=== PATIENT | male | born 2000 | race African-American/Black ===

== ENCOUNTER 2024-02-12 15:14 | Emergency (ER) | payer BC ==
--- OUTSIDE RECORDS SUMMARY | 2024-02-12 15:18 | XMS REPORT | Continuity of Care Document ---
Author Name Unknown Address [address] [facility] [address] [place] [address] [facility] thconnect Address [address] [facility] [address] [place] [address] Care Team Providers Care Residential Collections Name Role Phone NO, PCP Primary Care Physician Unavailab Daron Irizarry Attending Clinician Unavailable Eduard Aguiar Attending Clinician Unavailable JASPREET ARNDT Attending Clinician Unavailable BEVERLY CACERES Attending Clinician Unavailable HARJEET VELA - Attending Clinician Unavailab le Physician, No Primary or Family Admitting Clinic apple Unavailable JASPREET ARNDT Admitting Clinician Unavailable BEEVRLY CACERES Admitting Clinician Unavailable HARJEET VEAL - Admitting Clinician Unavailab james Payers Payer Name Policy Type Policy Number Effective Date Expirati on Date Source 2 C [id number] Allergies, Adverse Reactions, Alerts Allergy Name Allergy Type Status Severity Reaction(s) Onset Date Inactive Date Treating Clinician Comments Source No Known Allergie s DA Active U 06-25 00:00: 00 [facility] No known drug Allergie s Miscella neous Allergy Active U Not Specified 2020-06 15:30: 25 [facility] No known drug Allergie s Miscella neous Allergy Active U Not Specified 2020-06 15:30: 25 [facility] ([facility]) No known drug Allergie s Miscella neous Allergy Active U Not Specified 2020-06 15:30: 25 [facility] ([facility]) No known drug Allergie s Miscella neous Allergy Active U Not Specified 2020-06 15:30: 25 [facility] ([facility]) No known drug Allergie s Miscella neous Allergy Active U Not Specified 2020-06 15:30: 25 [facility] ([facility]) No known drug Allergie s Miscella neous Allergy Active U Not Specified 2020-06 15:30: 25 [facility] ([facility]) No known drug Allergie s Miscella neous Allergy Active U Not Specified 2020-06 15:30: 25 [facility] ([facility]) No known drug Allergie s Miscella neous Allergy Active U Not Specified 2020-06 15:30: 25 [facility] ([facility]) No known drug Allergie s Miscella neous Allergy Active U Not Specified 2020-06 15:30: 25 [facility] ([facility]) No Known Allergie s NA Active 2020-06 15:30: 19 [facility] ([facility]) No Known Allergie s NA Active 2020-06 15:22: 28 [facility] ([facility]) No Known Allergie s NA Active 2020-06 10:25: 33 [facility] ([facility]) No Known Allergie s NA Active 2020-06 16:48: 01 [facility] ([facility]) No Known Allergie s NA Active 2020-06 15:17: 04 [facility] ([facility]) No Known Allergie s NA Active 2020-06 15:07: 30 [facility] ([facility]) No Known Allergie s NA Active 10-26 12:40: 47 [facility] ([facility]) No Known Allergie s NA Active 09-30 08:53: 23 [facility] ([facility]) No Known Allergie s NA Active 09-23 10:56: 06 [facility] No Known Allergie s NA Active 09-22 01:11: 02 [facility] ([facility]) No Known Allergie s NA Active 09-21 21:45: 20 [facility] No Known Allergie s NA Active 09-21 21:13: 14 [facility] Encounters Start Date/Time End Date/Time Encounter Type Admission Type Attending [facility] Facility Care Department Encounter ID Source 2023-10-26 19:33:00 2023-10-26 20:19:00 [id number] 28 [facility] 2023-06-25 11:28:00 2023-06-25 12:39:00 Emergency EM [facility] [id number] 92 [facility] 2021-04-26 16:36:00 2021-04-26 19:23:00 [facility] [id number] 2021-04-26 10:36:00 2021-04-26 13:23:00 Outpatient Encounter 1 JASPREET ARNDT [facility] [id number] [facility] 2021-04-08 20:22:00 2021-04-08 22:15:00 Emergency Department [facility] [id number] 2021-04-08 15:22:00 2021-04-08 17:15:00 Outpatient Encounter JASPREET ARNDT [facility] [id number] [facility] ([facility]) 2021-04-01 20:07:00 2021-04-01 21:47:00 [facility] [id number] 2021-04-01 15:07:00 2021-04-01 16:47:00 Outpatient Encounter BEVERLY CACERES [facility] [id number] [facility] ([facility]) 2020-09-22 07:09:35 2020-09-22 07:09:35 Emergency HARJEET VELA [facility] [id number] [facility] ([facility]) Results Test Description Test Time Test Comments Results Result Co mments Source INFLUENZA [id number] 12:29:00* Test Item Value Reference Range Interpretation Comme nts FLU A (test code = FLU A) NEGATIVE NEGATIVE FLU B (test code = FLU B) NEGATIVE NEGATIVE FLU INTERNAL POSITIVE CNTRL (test code = FLU IPC) PASS PASS INFLUENZA LOT # (test code = FLULOT) [id number] INFLUENZA EXPIRATION DATE (t est code = FLUEXP) 09-23 Influenza virus A+B Ag [Presence] in Nose by [id number] 12:29:00* Test Item Value Reference Range Interpretation Comme nts FLU INTERNAL POSITIVE CNTRL (test code = FLU IPC) PASS PASS N INFLUENZA LOT # (test code = FLULOT) [id number] 1 N INFLUENZA EXPIRATION DATE (t est code = FLUEXP) 09-23 N [facility])COVID SYMPTOMATIC ER [id number] 12:05:00* Test Item Value Reference Range Interpretation Comme nts CORONAVIRUS (COVID-19)BY PCR (test code = EAZ07VHA) NEGATIVE SARS-CoV-2 (COVID-19) N gene [Presence] in [id number] 12:05:00Negative [facility])SARS-CoV-2 (COVID-19) N gene [Presence] in Resp 2021-04-26 12:05:[facility]TROPONIN [id number] 11:55:00* Test Item Value Reference Range Interpretation Comme nts TROPER (test code = TROPER) 0.00 NG/ML 0.0-0.08 INTERPRETIVE DATA A POC TROPONIN OF </= 0.08 NG/ML IS CONSIDERED NEGATIVE Troponin T.cardiac [Mass/volume] in [id number] 11:55:00* Test Item Value Reference Range Interpretation Comme nts Troponin T.cardiac [Mass/vol ume] in Blood (test code = 02763-2) 0.0 NG/ML 0.0-0.08 N [facility])Ribs - bilateral and Chest X-ray 2 views and PA 2021-04-26 11:50:00* Test Item Value Reference Range Interpretation Comme nts Ribs - bilateral and Chest X-ray 2 views and PA chest (test code = 23088-4) [address] [address] DIAGNOSTIC IMAGING REPORT Patient Name: VANESSA ROUSE Date of Service: 04-26-2021 Age: 20 Sex: M Order #: [id number] Room: [facility] : 2000 X-Ray Number: [id number] Hospital Number: [id number] Admitting Physician: JASPREET ARNDT Ordering Physician: JORGE RODRIGES - CHEST XR 2 VIEWS 04/26/2021 11:29 AM:History: Cough without fever . Chest wall pain.Comparison: 04/08/2021Technique: 2 view chestFindings: The cardiomediastinal silhouette is normal. The lungs are clear without infiltrate, effusion, or pneumothorax. The bones are intact.Impression: No acute cardiopulmonary process.Electronically Signed By: Chivo Ramirez M.D., 04/26/2021 11:47 AMLegally authenticated by MARIA ESTHER WALDRON 2021-04-26 11:47:35 [facility])CHEST XR 2 [id number] 11:50:00 [facility] Vaughn : 2000 Sex: M[address] [address]VTCIBRCETA IMAGING REPORTPatient Name: VANESSA ROUSEDate of Service: [id number]: 20 Sex: M Order #: [id number] Room: ERSDOB: 2000 X-Ray Number: [id number] Record Number: [id number] Hospital Number: [id number] Physician: Dany ARNDTering Physician: JORGE RODRIGES -LEONOR XR 2 VIEWS 04/26/2021 11:29 AM:History: Cough without fever . Chest wall pain.Comparison: 04/08/2021Technique: 2 view chestFindings:The cardiomediastinal silhouette is normal. The lungs are clear withoutinfiltrate, effusion, or pneumothorax. The bones are intact.Impression:No acute cardiopulmonary process.Electronically Si gned By: Chivo Ramirez M.D., 04/26/2021 11:47 AMLegally authenticated by MARIA ESTHER WALDRON 2021-04-26 11:47:35Chest X-ray AP portable single [id number] 16:37:00* Test Item Value Reference Range Interpretation Comme [facility] Chest X-ray AP portable single view (test code = 52398-8) [address] [address] DIAGNOSTIC IMAGING REPORT Patient Name: VANESSA ROUSE Date of Service: 04-08-2021 Age: 20 Sex: M Order #: [id number] Room: ERS : 2000 X-Ray Number: [id number] Hospital Number: [id number] Admitting Physician: JASPREET ARNDT Ordering Physician: PHILLY BANDA - LEONOR 1 VIEW PORTABLE 04/08/2021 4:26 PM:History: SOB/SOA . Shortness of breath with chest painComparison: 04/01/2021Technique: 1 view chestFindings: The cardiomediastinal silhouette is normal. The lungs are clear without infiltrate, effusion, or pneumothorax. The bones are intact.Impression: No acute cardiopulmonary process. Electronically Signed By: Chivo Ramirez M.D., 04/08/2021 4:34 PMLegally authenticated by MARIA ESTHER WALDRON 2021-04-08 16:34:39 [facility]CHEST 1 VIEW [id number] 16:37:00 [facility] Roderick : 2000 Sex: M[address] [address]CJTSTNORML IMAGING REPORTPatient Name: VANESSA ROUSEDate of Service: [id number]: 20 Sex: M Order #: [id number] [facility] 2000 [facility] Number: [id number] Record Number: [id number] Hospital Number: [id number] Physician: Ashley ARNDT Physician: PHILLY BANDA -CHEST 1 VIEW PORTABLE 04/08/2021 4:26 PM:History: SOB/SOA . Shortness of breath with chest painComparison: 04/01/2021Technique: 1 view chestFindings:The cardiomediastinal silhouette is normal. The lungs are clear withoutinfiltrate, effusion, or pneumothorax. The bones are intact.Impression:No acute cardiopulmonary process.Electronically Signed By: Chivo Ramirez M.D., 04/08/2021 4:34 PMLegally authenticated by MARIA ESTHER WALDRON 2021-04-08 16:34:39INFLUENZA [id number] 16:10:00* Test Item Value Reference Range Interpretation Comme nts FLU A (test code = FLU A) NEGATIVE NEGATIVE FLU B (test code = FLU B) NEGATIVE NEGATIVE FLU INTERNAL POSITIVE CNTRL (test code = FLU IPC) PASS PASS INFLUENZA LOT # (test code = FLULOT) [id number] INFLUENZA EXPIRATION DATE (t est code = FLUEXP) [id number] Influenza virus A+B Ag [Presence] in Nose by [id number] 16:10:00* Test Item Value Reference Range Interpretation Comme nts FLU INTERNAL POSITIVE CNTRL (test code = FLU IPC) PASS PASS N INFLUENZA LOT # (test code = FLULOT) [id number] 1 N INFLUENZA EXPIRATION DATE (t est code = FLUEXP) [id number] 1 N [facility])Chest X-ray AP portable single [id number] 15:38:00* Test Item Value Reference Range Interpretation Comme nts Chest X-ray AP portable single view (test code = 60494-2) [address] [address] DIAGNOSTIC IMAGING REPORT Patient Name: VANESSA ROUSE Date of Service: 04-01-2021 Age: 20 Sex: M Order #: 100 Room: [facility] : 2000 X-Ray Number: [id number] Hospital Number: [id number] Admitting Physician: BEVERLY CACERES Ordering Physician: ADORE PIEDRA.04/01/2021 3:31 PMHistory: Cough and congestion.Technique: Single AP chest projection.Findings: Single chest projection demonstrates normal heart size and clear lungs. The osseous structures appear intact.Impression:No acute-appearing cardiopulmonary abnormalities.Electronical ly Signed By: Davide Padron M.D., 04/01/2021 3:36 PMLegally authenticated by CHAPARRO Lopez 2021-04-01 15:36:11 [facility])CHEST 1 VIEW [id number] 15:38:00 [facility] : 2000 [facility] [place], [place] [address]PAMRCTXJMG IMAGING REPORTPatient Name: VANESSA ROUSEDate of Service: [id number]: 20 Sex: M Order #: 100 Room: ERSDOB: 2000 X-Ray Number: [id number] Record Number: [id number] Hospital Number: [id number] Physician: BEVERLY CACERESOrdering Physician: ADORE PIEDRA.04/01/2021 3:31 PMHistory: Cough and congestion.Technique: Single AP chest projection.Findings: Single chest projection demonstrates normal heart size and clearlungs. The osseous structures appear intact.Impression:No acute-appearing cardiopulmonary abnormalities.Electronically Signed By: Davide Padron M.D., 04/01/2021 3:36 PMLegally authenticated by CHAPARRO Lopez 2021-04-01 15:36:11COVID SYMPTOMATIC ER [id number] 15:30:00* Test Item Value Reference Range Interpretation Comme nts CORONAVIRUS (COVID-19)BY PCR (test code = LNH66OAL) NEGATIVE SARS-CoV-2 (COVID-19) N gene [Presence] in [id number] 15:30:00Negative [facility])SARS-CoV-2 (COVID-19) N gene [Presence] in Resp 2021-04-01 15:30:00[facility])BLOOD [id number] 10:03:00* Test Item Value Reference Range Interpretation Comme nts Report Text (test code = Report Text) [facility] 2020-09-22 453 Report Text7 (test code = Report Text7) BLOOD CULTURES HELD FOR 5 DAYS BEFORE FINAL Report Text8 (test code = Report Text8) Report Text9 (test code = Report Text9) [employer] SUGGESTS THAT Report Text10 (test code = Report Text10) MOST CASES OF BACTEREMIA ARE DETECTED BY USING Report Text11 (test code = Report Text11) THREE SETS OF SEPARATELY COLLECTED BLOOD CULTURES. Report Text12 (test code = Report Text12) [facility] 2020-09-22 454 Report Text13 (test code = Report Text13) CONVERSELY, A SINGLE BLOOD CULTURE MAY MISS Report Text14 (test code = Report Text14) INTERMITTENTLY OCCURRING BACTEREMIA AND MAKE Report Text15 (test code = Report Text15) IT DIFFICULT TO INTERPRET THE CLINICAL Report Text16 (test code = Report Text16) SIGNIFICANCE OF CERTAIN ISOLATED ORGANISMS. Report Text17 (test code = Report Text17) Report Text18 (test code = Report Text18) [facility] 2020-09-22 455 Report Text19 (test code = Report Text19) COLLECTION SITE UNSPECIFIED Report Text20 (test code = Report Text20) [facility] 2020-09-22 1414 Report Text21 (test code = Report Text21) NO GROWTH WITHIN 1 DAY Report Text22 (test code = Report Text22) PRELIMINARY REPORT Report Text23 (test code = Report Text23) Report Text24 (test code = Report Text24) [facility] 2020-09-23 647 Report Text25 (test code = Report Text25) NO GROWTH WITHIN 2 DAYS Report Text26 (test code = Report Text26) PRELIMINARY REPORT Report Text27 (test code = Report Text27) Report Text28 (test code = Report Text28) [facility] 2020-09-26 1003 Report Text29 (test code = Report Text29) NO GROWTH WITHIN 5 DAYS Report Text30 (test code = Report Text30) FINAL REPORT NEG STREP SCRN CONFIRM [id number] 08:11:00* Test Item Value Reference Range Interpretation Comme nts Report Text (test code = Report Text) [facility] 2020-09-22 1138 Report Text7 (test code = Report Text7) NORMAL RESPIRATORY NIYA ISOLATED Report Text8 (test code = Report Text8) PRELIMINARY REPORT Report Text9 (test code = Report Text9) Report Text10 (test code = Report Text10) [facility] 2020-09-23 811 Report Text11 (test code = Report Text11) STREP SCREEN NEGATIVE, CULTURE NEGATIVE FOR Report Text12 (test code = Report Text12) GROUP A STREP - FINAL REPORT. CHEST XR 2 [id number] 07:09:00 [facility] Roderick : 2000 [facility]: [facility] [place] [id number] IMAGING REPORTPatient Name: VANESSA ROUSEDate of Service: [id number]: 19 Sex: M Order #: [id number] Room: ERSDOB: 2000 X-Ray Number: [id number] Record Number: [id number] Hospital Number: [id number] Physician: HARJEET VELA -Ordering Physician: ADELAIDE RODRIGES XR 2 VIEWS 09/21/2020 10:14 PMHistory: Cough with feverComparisons: None Available.CHEST:FINDINGS:Heart size is normal.There is no focal lung consolidation.There is no definite pleural effusion or pneumothorax identified.IMPRESSION:No acute cardiopulmonary process.EMERGENT INTERPRETATION PROVIDED BY [facility].Electronically Signed By: Juan Lara M.D., 09/22/2020 7:06 AMLegally authenticated by NOEL SHERMAN 2020-09-22 07:06:58INFLUENZA [id number] 00:08:00 * Test Item Value Reference Range Interpretation Comme nts FLU A (test code = FLU A) NEGATIVE NEGATIVE FLU B (test code = FLU B) NEGATIVE NEGATIVE FLU INTERNAL POSITIVE CNTRL (test code = FLU IPC) PASS PASS INFLUENZA LOT # (test code = FLULOT) [id number] INFLUENZA EXPIRATION DATE (t est code = FLUEXP) 10-18-2022 COVID SYMPTOMATIC ER [id number] 00:00:00* Test Item Value Reference Range Interpretation Comme nts CORONAVIRUS (COVID-19)BY PCR (test code = FVR06JVE) POSITIVE BMP, BASIC METABOLIC [id number] 23:37:00* Test Item Value Reference Range Interpretation Comme nts SODIUM (test code = NA) 136 MMOL/L 137-145 L K+ (test code = KSERUM) 3.8 MMOL/L 3.5-5.1 CHLORIDE (test code = CL) 98 MMOL/L 98-107 CO2 (test code = CO2) 29 MMOL/L 22-30 BUN (test code = BUN) 9 MG/DL 9-20 CREA (test code = CREA) 1.2 MG/DL 0.8-1.5 GLUCOSE (test code = GLUCOSE) 109 MG/DL 70-99 H Fasting glucos e normal <100 MG/DL- [employer] recommendation CALCIUM (test code = CABLOOD) 9.5 MG/DL 8.4-10.2 GFR (test code = GFR) 101 mL/min/1.73m2 A GFR of >90 mL/min/1.73m2 is considered normal. The GFR calculation on patients over 70 years of age is not validated by the police lieutenant patrol and may not represent the patients true renal function. GROUP A STREP [id number] 23:21:00* Test Item Value Reference Range Interpretation Comme nts GROUP A STREP SCREEN (test code = STREPGRA) NEGATIVE NEGATIVE Culture set up to confirm negative Strep Screen STREP A INTERNAL POS CNTRL (test code = STRPAIPC) PASS PASS STREP A LOT # (test code = STRPALOT) [id number] STREP A EXPIRATION DATE (test code = STRPAEXP) Culture set up to confirm negative Strep [id number] 23:14:00* Test Item Value Reference Range Interpretation Comme nts WBC (test code = WBC) 5.2 K/UL 3.5-10.9 RBC (test code = RBC) 5.51 M/UL 4.3-5.7 HGB (test code = HGB) 16.7 G/DL 13.0-17.9 HCT (test code = HCT) 48.4 % 38-52 MCV (test code = MCV) 87.8 FL 80-98 MCH (test code = MCH) 30.3 PG 28-32 MCHC (test code = MCHC) 34.5 G/DL 32.5-36.5 RDW (test code = RDW) 12.3 % 11.5-14.5 PLT (test code = PLT) 210 K/UL 150-450 MPV (test code = MPV) 11.0 FL 7.4-10.4 H MANDIFF (test code = MANDIFF) NO SCAN (test code = SCAN) NO NEUT% (test code = NEUT%) 72.2 % 40-75 LYMPH% (test code = LYMPH%) 12.9 % 24-44 L MONO% (test code = MONO%) 13.5 % 0-13 H EOS% (test code = EOS%) 0.2 % 0-4 BASO % (test code = BASO%) 1.0 % 0-2 IG (test code = IG) 0 % 0-1 IG% (test code = IG%) 0.2 % 0-1 IG% = Metamyeloc ytes, Myelocytes, and Promyelocytes. (Immature neutrophils not including "bands".) > 3% IG indicates risk of sepsis NRBC% (test code = NRBC%) 0 /100 WBC ABS NEUT (test code = NEUT) 3.8 K/UL 1.2-7.2 US EXTREMITY NON-VAS [id number] 15:32:[address] [address]GUCCTCHWOE IMAGING REPORTPatient Name: VANESSA ROUSE JDate of Service: [id number]: 18 Sex: M Order #: [id number] Room: OPEDOB: 2000 X-Ray Number: [id number] Record Number: [id number] Hospital Number: [id number] Physician: STEFANO POWELLOrdering Physician: STEFANO POWELL extremity nonvascular ultrasound.History: Complaining of pain in the right inguinal areaTechnique: Targeted ultrasound of the right inguinal areaComparison: No comparison availableFindings:Targeted ultrasound of the right inguinal area was performed. There is nodefinite evidence for a right inguinal hernia on this ultrasoundevaluation. Incidental is made of a lymph node in the right inguinal areameasuring approximately 1.8 x 0.5 cm.Impression:No definite evidence for a right inguinal hernia on this ultrasoundevaluation.Electronically Signed By: Alli Bobby M.D., 01/27/2019 3:30 PMLegally authenticated by EDUARDA LANDERS JR 2019-01-27 15:30:02 Notes Date/Time Note Provider Source 2023-10-26 19:54:00 [facility] ([facility]) EMERGENCY PROVIDER REPORT REPORT#:[id number] REPORT STATUS: Signed DATE:10/26/23 TIME: 1953 PATIENT: VANESSA ROUSE UNIT #: [id number] ROOM/BED: AGE: 22 SEX: M PCP PHYS: No Primary or Family Physician SERVICE AUTHOR: Radha Valiente LOCATION: [facility] * ALL edits or amendments must be made on the electronic/computer document * Radha Valiente 10/26/231953: HPI-Foot Prob/Inj Free Text HPI Notes Free Text HPI Notes This is a 22-year-old male patient with no significant past medical history present emergency room with right big toe swelling and pain for the past couple days. Patient states he has a ingrown toenail. Patient denies taking medications prior to arrival. Patient denies trauma. The patient denies any current SOB, abdominal pain, chest pain, dizziness, lightheadedness, nausea/ vomiting, diarrhea. Notice: Parts of this note were created using [employer] speech recognition dictation software. All things were made to correct any errors at the time of dictation, however there may be some errors present in the advertising sales representative that were inadvertently overlooked during the dictation. General Confirmed Patient Yes Patient Type New patient Initial Greet Date/Time 10/26/231934 Presentation Chief Complaint Toe pain R, Toe swelling R Hx Obtained From Patient Location: Right Foot Toe (Great toe) Quality Painful Associated with Denies: Cold extremity, Fever, Joint swelling, Neuro symptoms pre-arriv, Numbness, Painful extremity, Rash, Swollen extremity, Weak extremity, Weakness. Review of Systems ROS Statements All systems rev neg except as marked. Focused Review of Systems Skin Reports: Erythema, Swelling. Past Medical History - Adult Stated Complaint RT GREAT TOE PAIN/INGROWNTOENAIL Allergies Coded Allergies: No Known Allergies (06/25/23) Home Medications Active Scripts AMOXICILLIN (AMOXIL) 875 MG PO Q12HR 10 Days #20 TABS Prov: 06/25/23 Calculated Suicide Risk (nurs) No risk Review of Nursing Notes Triage notes reviewed Pt reports no significant: Past medical history, Past surgical history, Family history, Social history Smoking status for patients 13 years old or older: Never Smoker Physical Exam Vital Signs Vital Signs First Documented: Result Date Time Pulse Ox 96 10/25 1936 B/P 130/74 10/25 1936 B/P Mean 92 10/25 1936 O2 Delivery Room air 10/25 1936 Temp 37.3 10/25 1936 Pulse 73 10/25 1936 Resp 16 10/25 1936 Last Documented: Result Date Time Pulse Ox 98 10/25 2022 B/P 118/74 10/25 2022 B/P Mean 88 10/25 2022 O2 Delivery Room air 10/25 2022 Temp 37.2 10/25 2022 Pulse 67 10/25 2022 Resp 18 10/25 2022 Review of Vital Signs Reviewed Basic Physical Exam Basic PE GEN: Well appearing/NAD, HEAD: Atraumatic/NC, EYES: PERRL, conj clear, ENT: Membranes moist, NECK: Supple, RESP: No resp distress, CV: Reg rate rhythm, ABD: Soft/non-tender, UP EXT: No gross abnormal, SKIN: No rashes, warm/ dry, NEURO: alert oriented, NEURO: gross movement NL, PSYCH: NL thought content Focused PE General/Const General/Const Awake, Alert, No acute distress, Well appearing, Well developed , Well hydrated, Well nourished, Cooperative, Not toxic appearing MS Ankle/Foot Ankle/Foot Atraumatic, Inspection NL, Full range of motion, No erythema, Non- tender, No deformity, Neurologic intact, Vascular intact, No ligamentous injury, Tendon function NL, No compartment syndrome, No circumferential injury, No edema , Gait NL Right Great Toe Positive: Swelling present, Paronychia. Skin Skin Atraumatic, Color NL, No rash, Warm, Dry, Intact, Turgor NL, No swelling Neurologic Neurologic Oriented X3, Speech NL, No motor deficits, No sensory deficits, CN II - XII intact, Reflexes equal bilat, Cerebellar NL, Memory NL, Gait NL Re-Evaluation MDM Re-Evaluation/Progress Compartment Syndrome There are no signs or symptoms of compartment syndrome in the injured extremity at the time of this examination. Any pain the patient has is in proportion to the injury, the peripheral circulation is intact, capillary refill is not delayed, and there is no numbness, tingling or paresthesia. Tissue Perfusion Reassessment Patient tissue perfusion reassessment completed. ED Course Medication(s) Ordered Medication(s) Ordered: Central Nervous System Agents Sig/Katiuska Start time Last Medication Dose Route Stop Time Status Admin Ibuprofen 800 MG X1ED STA 10/25 2002 DC 10/25 PO 10/25 Skin And Mucous Membrane Agent Sig/Katiuska Start time Last Medication Dose Route Stop Time Status Admin Neomycin/Polymyxin/ 1 ENEDELIA X1ED STA 10/25 2002 DC 10/25 Bacitracin TOPICAL 10/25 Differential Diagnosis Differential Diagnosis Abrasion, Abscess, Arterial occlus/ischemia, Arthritis, gonococcal, Arthritis, gouty, Arthritis, pseudogout, Arthritis, rheumatoid, Arthritis, septic, Bite injury, Burn injury, Bursitis, Cellulitis, Compartment syndrome, Contusion, Deep vein thrombosis, Disloc dist interphal jt, Disloc metatar-phal jt, Disloc prox interphal jt, Dislocation subtalar, Dislocation total talar, Fx calcaneus, Fx cuboid, Fx cuneiform, Fx distal phalanx, Fx Hutson, Fx Lisfranc, Fx metatarsal base, Fx metatarsal head, Fx metatarsal neck, Fx middle phalanx, Fx navicular, Fx proximal phalanx, Fx sesamoid bone, Fx stress, Fx talus, Fx talus, dome, Hemarthrosis, Hematoma, Laceration, Neurovascular injury, Open fracture, Osteomyelitis, Peroneal tendon disloc, Plantar fasciitis, Puncture wound, Reflex symp dystrophy Free Text MDM Notes Free Text MDM Notes This patient presents with initial presentation of local erythema, warmth, swelling concerning for cellulitis. Sensitivity/pain to light touch around the erythematous area. No lymphangitic spread visible and no fluid pockets or fluctuance concerning for abscess noted. Low concern for osteomyelitis or DVT. No immune compromise, bullae, pain out of proportion, or rapid progression concerning for necrotizing fasciitis. Patient to be discharged home with keflex with follow up with their PMD. Patient's condition remained stable during emergency department evaluation. Patient was in no acute cardiorespiratory distress and no acute neurological changes noted. I discussed physical examination, diagnostic test results and treatment plan with patient including need for follow-up evaluation. I encouraged return to the nearest ED if symptoms change or worsens. Patient verbalizes understanding, states intention to ensure follow-up as advised and in agreement with the treatment plan. Patient Discharge Departure Vital Signs/Condition Vital Signs First Documented: Result Date Time Pulse Ox 96 10/25 1936 B/P 130/74 10/25 1936 B/P Mean 92 10/25 1936 O2 Delivery Room air 10/25 1936 Temp 37.3 10/25 1936 Pulse 73 10/25 1936 Resp 16 10/25 1936 Last Documented: Result Date Time Pulse Ox 98 10/25 2022 B/P 118/74 10/25 2022 B/P Mean 88 10/25 2022 O2 Delivery Room air 10/25 2022 Temp 37.2 10/25 2022 Pulse 67 10/25 2022 Resp 18 10/25 2022 All vital signs available at the time of this entry have been reviewed. Condition Stable Clinical Impression Clinical Impression Primary Impression: Toe pain, right Secondary Impressions: Cellulitis, Paronychia Disposition Decision Discharge )( Discharged to Home Yes )( Time 2013 )( Date 10/26/23 Discharge/Care Plan Counseled Regarding Diagnosis, Medication changes, Prescriptions, Need for follow-up, When to return to ED Rx Drug Database Reviewed Yes (Auto) Prescriptions Current Visit Scripts MUPIROCIN (BACTROBAN 2%) 1 APPLIC TOPICAL DAILY MUPIROCIN (BACTROBAN 2%) 1 APPLIC TOPICAL DAILY #22 GM CEPHALEXIN (KEFLEX) 500 MG PO Q12H CEPHALEXIN (KEFLEX) 500 MG PO Q12H #20 CAPS IBUPROFEN (MOTRIN) 800 MG PO TID PRN PRN PAIN IBUPROFEN (MOTRIN) 800 MG PO TID PRN PRN PAIN #30 TABS Prescriptions Reviewed Risks, Benefits, Alternative treatment Patient Instructions ED Paronychia of the Finger or Toe Departure Forms LOW COST OR FREE CLINICS [facility] PCP LIST Discharge Note I have spoken with the patient and/or caregivers. I have explained the patient's condition, diagnoses and treatment plan based on the information available to me at this time. I have answered the patient's and/or caregiver's questions and addressed any concerns. The patient and/or caregivers have as good an understanding of the patient's diagnosis, condition and treatment plan as can be expected at this point. The vital signs have been stable. The patient's condition is stable and appropriate for discharge from the emergency department. The patient will pursue further outpatient evaluation with the primary care physician or other designated or consulting physician as outlined in the discharge instructions. The patient and/or caregivers are agreeable to this plan of care and follow-up instructions have been explained in detail. The patient and/or caregivers have received these instructions in written format and have expressed an understanding of the discharge instructions. The patient and/or caregivers are aware that any significant change in condition or worsening of symptoms should prompt an immediate return to this or the closest emergency department or a call to 911. Extremity Inj Discharge Note The patient is discharged home with supportive care, a plan for pain control, and follow-up instructions that detail what to expect over the next 48 hours and what symptoms should prompt immediate return to the ED, including the symptoms of compartment syndrome. Follow-up instructions have been explained in detail to the patient, and the instructions have been provided in written format. The patient is comfortable with the plan of care and has expressed an understanding of the discharge instructions. The patient is aware that any significant change in condition or worsening of symptoms should prompt an immediate call to the primary or designated physician. If that is not successful the patient should call or return to this or the closest emergency department or call 911. Daron Partida 10/27/23 0144: Patient Discharge Departure Discharge/Care Plan Referrals Provider Referral: Kyung Welch DPM Follow-Up: Call for appointment Address: [address] [facility] [address] [place] [address] Provider Referral: Winsome Pike DPM Follow-Up: Call for appointment Address: [address] [facility] [address] [place] [id number] Provider Referral: Hiren Aguiar DPM Follow-Up: Call for appointment Address: [address] [facility] [address] [place] [id number] Supervising Physician Note Adalberto Saw Pt Alone I have reviewed the PA/THREAD MACHINE OPERATOR's note and plan of care. I was available for consultation as needed at all times during the patient's visit in the emergency department. I agree with the clinical impression, plan and disposition. at 2106 at 0144 RPT #:[id number] END OF REPORT [facility] 2023-10-26 19:38:00 [facility] ([facility]) EMERGENCY PROVIDER REPORT REPORT#:[id number] REPORT STATUS: Signed DATE:10/26/23 TIME: 1937 PATIENT: VANESSA ROUSE UNIT #: [id number] ROOM/BED: AGE: 22 SEX: M PCP PHYS: No Primary or Family Physician SERVICE DT: AUTHOR: Beto Muñiz LOCATION: [facility] * ALL edits or amendments must be made on the electronic/computer document * Provider in Triage - Adult Provider in Triage Initial Greet Date/Time 10/26/231934 Free Text PIT Notes Free Text PIT Notes I have greeted and performed a focused rapid initial assessment of this patient. A comprehensive ED assessment and evaluation of the patient, analysis of all test results, and completion of the medical decision-making process will be conducted by additional ED providers. Pt is a 22-year-old male to the ED with chief complaint of right great big toe pain for 3 days. General/Constitutional: Appears to be in no acute distress Neurologic: Alert, Oriented x3 Respiratory: Atraumatic, no acute respiratory distress, no stridor, symmetric expansion, unlabored breathing, airway patent, no drooling Initial labs, radiographs ordered upon initial assessment. The medical screening examination is complete. The patient does not need immediate medical attention. There are no acute symptoms of sufficient severity that the patient could reasonably be expected to develop serious impairment or dysfunction of body functions or organs. Parts of the note were created using [employer] speech recognition dictation software. All attempts were made to correct any errors at the time of dictation, however there may be some errors present in the advertising sales representative that were inadvertently overlooked during the dictation. PMH-Provider in Triage Stated Complaint RT GREAT TOE PAIN/INGROWN TOENAIL Allergies Coded Allergies: No Known Allergies (06/25/23) Home Medications Active Scripts AMOXICILLIN (AMOXIL) 875 MG PO Q12HR 10 Days #20 TABS Prov: 06/25/23 Smoking status: Smoking status for patients 13 years old or older: Never Smoker at 1938 RPT #:[id number] END OF REPORT [facility] 2023-06-25 12:35:00 [facility] ([facility]) EMERGENCY PROVIDER REPORT REPORT#:[id number] REPORT STATUS: Signed DATE:06/25/23 TIME: 1235 PATIENT: VANESSA ROUSE UNIT #: [id number] ROOM/BED: AGE: 22 SEX: M PCP PHYS: No Primary or Family Physician SERVICE AUTHOR: Nicolasa George LOCATION: [facility] * ALL edits or amendments must be made on the electronic/computer document * Nicolasa George 06/25/23 1235: HPI-URI/Cough/Cold Free Text HPI Notes Free Text HPI Notes Pt is a 22yo male with no Pmhx who presents to ED for cough, congestion, bodyaches, fever, and sore throat x 4 days. Denies abd pain, SOB, vomiting. General Confirmed Patient Yes Initial Greet Date/Time 06/25/23 1128 Presentation Chief Complaint Cough, non-productive, Fever, Sore throat Hx Obtained From Patient Review of Systems ROS Statements All systems rev neg except as marked. Complete sys rev neg except as marked. Focused Review of Systems Constitutional Reports: Fever. Denies: Chills, Fatigue, Lethargy, Malaise, Recent wt loss, Weakness - generalized. Eyes Denies: Blurred R, Blurred L, Blurred bilat, Diplopia, Discharge R, Discharge L, Discharge bilat, Eye pain R, Eye pain L, Eye pain bilat, Photophobia, Redness R, Redness L, Redness bilat, Swelling R, Swelling L, Swelling bilat, Visual loss R, Visual loss L, Visual loss bilat, Yellow R, Yellow L, Yellow bilat. Ears/Nose/Throat Reports: Nasal congestion, Sore throat, Throat pain. Denies: Anosmia, Ear drainage R, Ear drainage L, Ear drainage bilat, Ear ringing R, Ear ringing L, Ear ringing bilat, Earache R, Earache L, Earache bilat, Hearing loss R, Hearing loss L, Hearing loss bilat, Mouth pain, Nose bleeding, Sinus problem, Throat swelling, Tongue pain, Tongue swelling, Toothache, Voice change. Respiratory Reports: Cough, non-productive. Denies: Cough, productive, Dyspnea on exertion, Hemoptysis, Parox nocturnal dyspnea, Pleuritic pain, Shortness of breath, Wheezing. GI Denies: Abdominal pain, Anorexia, Belching, Bloody/tarry stool, Constipation, Diarrhea, Dysphagia, Hematemesis, Hematochezia, Mucousy stool, Melena, Nausea, Rectal pain, Vomiting. Skin Denies: Abrasion, Abscess, Burn, Contusion, Diaphoresis, Erythema, Itching, Jaundice, Laceration, Rash, Swelling, Ulceration. Allergy/Immun Denies: Allergic reaction, Anaphylaxis, Hives, Itching, Rhinorrhea, Sneezing. Neurologic Denies: Abnormal movement, Bladder dysfunction, Bowel dysfunction, Change LOC, Confusion, Dizziness, Focal weakness, Generalized weakness, Headache, Lightheaded, Numbness, Problem walking, Seizure, Shaking, Slurred speech, Spinning sensation, Syncope, Tingling, Unable to speak, Vision change. Past Medical History - Adult Stated Complaint FEVER FLU LIKE SYMPTOMS FOR 4 DAYS Allergies Coded Allergies: No Known Allergies (06/25/23) Calculated Suicide Risk (nurs) No risk Pt reports no significant: Past medical history Smoking status for patients 13 years old or older: Never Smoker Physical Exam Vital Signs Vital Signs First Documented: Result Date Time Pulse Ox 95 06/25 1149 B/P 129/81 06/25 1149 B/P Mean 97 06/25 1149 O2 Delivery Room air 06/25 1149 Temp 100.2 06/25 1149 Pulse 97 06/25 1149 Resp 18 06/25 1149 Last Documented: Result Date Time Pulse Ox 97 06/25 1239 B/P 129/80 06/25 1239 B/P Mean 96 06/25 1239 O2 Delivery Room air 06/25 1239 Temp 98.0 06/25 1239 Pulse 82 06/25 1239 Resp 16 06/25 1239 Review of Vital Signs Reviewed, Vital signs normal Focused PE General/Const General/Const Awake, Alert, No acute distress, Well appearing, Well developed , Well hydrated, Well nourished, Cooperative, Not toxic appearing Eyes Eyes Atraumatic, PERRL, EOMI, No nystagmus, No periorbital redness, No periorbital swelling, No photophobia, No scleral icterus Ears/Nose/Throat Ears/Nose/Throat Atraumatic, Airway patent, Mucous membranes moist, No peritonsillar abscess, No pooling of secretions, No trismus, Ext aud canal NL, Mastoid area NL, Nose exam NL, No sinus tenderness, No facial swelling, Gums/ dentition NL Pharynx/Tonsils/Uvula Pharyngeal erythema, Tonsillar erythema R, Tonsillar erythema L, Tonsillar swelling R, Tonsillar swelling L. Negative: Tonsillar exudate R, Tonsillar exudate L, Peritonsil abscess R, Peritonsil abscess L, Trismus present, Epiglottis enlarged, Epiglottis erythematous, Uvula deviated R, Uvula deviated L , Uvula edematous, Uvula enlarged, Uvula erythematous. Right Ear/Mastoid Negative: Tympanic membrane red, Tympanic membrane bulging, Tympanic memb perforated, Tympanic memb retracted, Bullous myringitis, Fluid behind TM clear, Fluid behind TM purulent, External canal red, External picker tender helper, Ext canal foreign body, Discharge purulent, Discharge bloody, Ext canal cerumen impact, Mastoid area red, Mastoid area tender, [place] red, [place] tender. Left Ear/Mastoid Tympanic membrane red. Negative: Tympanic membrane bulging, Tympanic memb perforated, Tympanic memb retracted, Bullous myringitis, Fluid behind TM clear, Fluid behind TM purulent, External canal red, External picker tender helper, Ext canal foreign body, Discharge purulent, Discharge bloody, Ext canal cerumen impact, Mastoid area red, Mastoid area tender, [place] red, [place] tender. MS Neck Neck Atraumatic, Supple, No meningismus, Full range of motion, No swelling, Non-tender, No midline vertebral tend, No masses, No crepitus, No JVD, No carotid bruit, Thyroid NL, No tracheal deviation Soft Tissue Neck Cervical adenopathy R, Cervical adenopathy L. Resp/Chest Respiratory/Chest Atraumatic, Breath sounds NL, Breath sounds = bilat, No respiratory distress, No rales, No rhonchi, No wheezing, No retractions, No stridor, No chest tenderness, No chest wall deformity, No crepitus Cardiovascular Cardiovascular Heart rate NL, Regular rhythm, Heart sounds NL, No gallop, No murmurs, No rubs, Cap refill not delayed, Peripheral circulation NL, Pulses = bilaterally, No gross BP differential Abdomen/GI Abdomen/GI Atraumatic, Soft, Non-tender, McBurney's non-tender, No guarding, No rebound, BS normoactive, No distention, No hernia, No palpable mass, No pulsatile mass Skin Skin Atraumatic, Color NL, No rash, Warm, Dry, Intact, Turgor NL, No swelling Neurologic Neurologic Oriented X3, Speech NL, No motor deficits, No sensory deficits, CN II - XII intact, Reflexes equal bilat, Cerebellar NL, Memory NL, Gait NL Interpretation Diagnostics Lab Results Interpretation Results Laboratory Tests: 06/25 1151 Serology SARS-CoV-2 Ag (Rapid) (Negative) NEGATIVE Microbiology: Date/Time Procedure - Status Source Growth 06/25 1152 Group A Streptococcus Screen (CATHERINE) - RES THROAT 06/25 1152 Streptococcus Culture - RES THROAT 06/25 1151 Influenza Virus Type B Antigen - COMP NASOPHARG 06/25 1151 Influenza Virus Type A Antigen - COMP NASOPHARG Lab Statement Laboratory studies reviewed and considered in the medical decision-making. Re-Evaluation MDM Free Text MDM Notes Free Text MDM Notes Patient appears nontoxic. Patient is in no acute distress. Given Tylenol for low-grade fever. Lungs clear to auscultation. Abdomen soft and nontender. Patient can tolerate p.o. patient tested negative for COVID, flu, strep. On exam patient has erythematous and edematous posterior pharynx and tonsils with anterior cervical lymphadenopathy with a left-sided otitis media. Based on exam findings and symptoms, patient suspected to have strep pharyngitis. Airway is patent. Patient is stable and appropriate for discharge. Discharged with Rx and educated on supportive care instructions. Re-Evaluation/Progress URI/Flu Adult MDM Note The patient is now resting comfortably, is alert and in no distress. The patient has a normal mental status and is neurologically intact. The patient appears well and is able to tolerate food or fluid by mouth, and there is no significant dehydration. There is no respiratory distress and no signs of systemic toxicity. The history, exam, diagnostic testing (if any) and current condition do not demonstrate an infectious process such as meningitis, severe pneumonia, retropharyngeal abscess, epiglottitis, sepsis or other serious bacterial infection requiring further testing, treatment, consultation, or admission at this time. The vital signs have been stable. The patient's condition is stable and appropriate for discharge. The patient will pursue further outpatient evaluation with the primary care physician or other designated or consulting physician as indicated in the discharge instructions. Tissue Perfusion Reassessment Patient tissue perfusion reassessment completed. ED Course Medication(s) Ordered Medication(s) Ordered: Central Nervous System Agents Sig/Katiuska Start time Last Medication Dose Route Stop Time Status Admin Acetaminophen 1,000 MG X1ED STA 06/25 1154 DC 06/25 PO 06/25 1155 1200 Patient Discharge Departure Vital Signs/Condition Vital Signs First Documented: Result Date Time Pulse Ox 95 06/25 1149 B/P 129/81 06/25 1149 B/P Mean 97 06/25 1149 O2 Delivery Room air 06/25 1149 Temp 100.2 06/25 1149 Pulse 97 06/25 1149 Resp 18 06/25 114 Last Documented: Result Date Time Pulse Ox 97 06/25 1239 B/P 129/80 06/25 1239 B/P Mean 96 06/25 1239 O2 Delivery Room air 06/25 1239 Temp 98.0 06/25 1239 Pulse 82 06/25 1239 Resp 16 06/25 1239 All vital signs available at the time of this entry have been reviewed. Condition Stable, Improved Clinical Impression Clinical Impression Primary Impression: Pharyngitis Secondary Impressions: Otitis media, left Disposition Decision Discharge )( Discharged to Home Yes )( Time 1235 )( Date 06/25/23 Discharge/Care Plan Counseled Regarding Diagnosis, Lab results, Prescriptions, When to return to ED (Auto) Prescriptions Current Visit Scripts AMOXICILLIN (AMOXIL) 875 MG PO Q12HR 10 Days #20 TABS Patient Instructions ED Otitis Media Adult Additional Instructions Drink plenty of water. Take Tylenol or Motrin as needed for fever. Complete entire course of antibiotic even if feeling better. If symptoms do not improve in the next week then follow-up with PCP or return to the ED. Discharge Note I have spoken with the patient and/or caregivers. I have explained the patient's condition, diagnoses and treatment plan based on the information available to me at this time. I have answered the patient's and/or caregiver's questions and addressed any concerns. The patient and/or caregivers have as good an understanding of the patient's diagnosis, condition and treatment plan as can be expected at this point. The vital signs have been stable. The patient's condition is stable and appropriate for discharge from the emergency department. The patient will pursue further outpatient evaluation with the primary care physician or other designated or consulting physician as outlined in the discharge instructions. The patient and/or caregivers are agreeable to this plan of care and follow-up instructions have been explained in detail. The patient and/or caregivers have received these instructions in written format and have expressed an understanding of the discharge instructions. The patient and/or caregivers are aware that any significant change in condition or worsening of symptoms should prompt an immediate return to this or the closest emergency department or a call to 911. Eduard Aguiar 06/25/23 1605: Patient Discharge Departure Supervising Physician Note MidLv Saw Pt Alone I have reviewed the PA/THREAD MACHINE OPERATOR's note and plan of care. I was available for consultation as needed at all times during the patient's visit in the emergency department. I agree with the clinical impression, plan and disposition. at 1400 at 1605 [facility] #:[id number] END OF REPORT [facility] PATIENT OPEN ORDERS Code System Description Frequency Occurrences Priority Start Date Ordering Physician EKGW MEDHOST EKG ONE TIME 0 Stat April 26, 2021 5:10:00 PM [facility] ANDREW Mak NP [facility]2021-11-24 13:24:12 PATIENT OPEN ORDERS Code System Description Frequency Occurrences Priority Start Date Ordering Physician EKGW MEDHOST EKG ONE TIME 0 Stat April 26, 2021 5:10:00 PM [facility] ANDREW Mak [facility]2021-11-24 11:47:35[place] [address] DIAGNOSTIC IMAGING REPORT Patient Name: VANESSA ROUSE Date of Service: 04-26-2021 Age: 20 Sex: M Order #: [id number] Room: [facility] : 2000 X-Ray Number: [id number] Hospital Number: [id number] Admitting Physician: JASPREET ARNDT Ordering Physician: JORGE RODRIGES CHEST XR 2 VIEWS 04/26/2021 11:29 AM: History: Cough without fever . Chest wall pain. Comparison: 04/08/2021 Technique: 2 view chest Findings: The cardiomediastinal silhouette is normal. The lungs are clear without infiltrate, effusion, or pneumothorax. The bones are intact. Impression: No acute cardiopulmonary process. Electronically Signed By: Chivo Ramirez M.D., 04/26/2021 11:47 AM Legally authenticated by MARIA ESTHER WALDRON 2021-04-26 11:47:35MOCHIVO DANIELS [id number] 16:34:39[place] [address] DIAGNOSTIC IMAGING REPORT Patient Name: VANESSA ROUSE Date of Service: 04-08-2021 Age: 20 Sex: M Order #: [id number] Room: [facility] : 2000 X-Ray Number: [id number] Hospital Number: [id number] Admitting Physician: JASPREET ARNDT Ordering Physician: PHILLY BANDA - CHEST 1 VIEW PORTABLE 04/08/2021 4:26 PM: History: SOB/SOA . Shortness of breath with chest pain Comparison: 04/01/2021 Technique: 1 view chest Findings: The cardiomediastinal silhouette is normal. The lungs are clear without infiltrate, effusion, or pneumothorax. The bones are intact. Impression: No acute cardiopulmonary process. Electronically Signed By: Chivo Ramirez M.D., 04/08/2021 4:34 PM Legally authenticated by MARIA ESTHER WALDRON 2021-04-08 16:34:39MOCHIVO DANIELS [id number] 15:36:11[place] [address] DIAGNOSTIC IMAGING REPORT Patient Name: VANESSA ROUSE Date of Service: 04-01-2021 Age: 20 Sex: M Order #: [id number] Room: [facility] : 2000 X-Ray Number: [id number] Hospital Number: [id number] Admitting Physician: BEVERLY CACERES Ordering Physician: ADORE PIEDRA - Chest.04/01/2021 3:31 PM History: Cough and congestion. Technique: Single AP chest projection. Findings: Single chest projection demonstrates normal heart size and clear lungs. The osseous structures appear intact. Impression: No acute-appearing cardiopulmonary abnormalities. Electronically Signed By: Davide Padron M.D., 04/01/2021 3:36 PM Legally authenticated by CHAPARRO Lopez 2021-04-01 15:36:11DAVIDE PADRON [id number] 07:06:58[place] [address] DIAGNOSTIC IMAGING REPORT Patient Name: VANESSA ROUSE Date of Service: 09-21-2020 Age: 19 Sex: M Order #: [id number] Room: [facility] : 2000 X-Ray Number: [id number] Hospital Number: [id number] Admitting Physician: HARJEET VELA - Ordering Physician: JORGE RODRIGES CHEST XR 2 VIEWS 09/21/2020 10:14 PM History: Cough with fever Comparisons: None Available. CHEST: FINDINGS: Heart size is normal. There is no focal lung consolidation. There is no definite pleural effusion or pneumothorax identified. IMPRESSION: No acute cardiopulmonary process. EMERGENT INTERPRETATION PROVIDED BY [facility]. Electronically Signed By: Juan Lara M.D., 09/22/2020 7:06 AM Legally authenticated by NOEL SHERMAN 2020-09-22 07:06:ABHINAV WARE
--- NOTE | 2024-02-12 17:28 | RAD REPORT ---
EXAM DESCRIPTION: RAD - Ankle Right 3 View - 02/12/2024 4:30 pm CLINICAL HISTORY: Right ankle pain FINDINGS: No fracture or dislocation is seen. No significant bone or joint abnormality noted
--- NOTE | 2024-02-12 17:31 | RAD REPORT ---
EXAM DESCRIPTION: RAD - Ankle Left 3 View -02/12/2024 4:30 pm CLINICAL HISTORY: Left ankle pain FINDINGS: No fracture or dislocation is seen. No bone or joint abnormality noted
--- NOTE | 2024-02-12 19:12 | ER ---
Nurse's Notes [facility] Name: Henri Correa Age: 23 yrs Sex: Male : 2000 Arrival Date: 02/12/2024 Time: 15:14 Bed 12 Private MD: Diagnosis: Unspecified symptoms and signs involving the musculoskeletal system Presentation: 02/11 15:50 Chief complaint: Patient states: bad pain in both Achilles tendons X 2 weeks. iw Coronavirus screen: At this time, the client does not indicate any symptoms associated with coronavirus-19. Ebola Screen: No symptoms or risks identified at this time. Initial Sepsis Screen: Does the patient meet any 2 criteria? No. Patient's initial sepsis screen is negative. Does the patient have a suspected source of infection? No. Patient's initial sepsis screen is negative. Risk Assessment: Do you want to hurt yourself or someone else? Patient reports no desire to harm self or others. Onset of symptoms was January 29, 2024. 15:50 Method Of Arrival: Ambulatory iw 15:50 Acuity: JESSICA 4 iw Historical: - Allergies: 15:51 No Known Allergies; iw - Home Meds: 15:51 None [Active]; iw - PMHx: 15:51 None; iw - PSHx: 15:51 None; iw - Immunization history:: Adult Immunizations. - Infectious Disease History:: Denies. - Social history:: Smoking status: Reported history of juuling and/or vaping. - Family history:: not pertinent. Screenin:34 [facility] ED Fall Risk Assessment (Adult) History of falling in the last 3 months, ap3 including since admission No falls in past 3 months (0 pts) Confusion or Disorientation No (0 pts) Intoxicated or Sedated No (0 pts) Impaired Gait No (0 pts) Mobility Assist Device Used No (0 pt) Altered Elimination No (0 pt) Score/Fall Risk Level 0 - 2 = Low Risk Oriented to surroundings, Maintained a safe environment, Educated pt \T\ family on fall prevention, incl call for assistance when getting out of bed, Assessed \T\ reinforced patient's understanding of fall precautions, Hourly rounding (assess needs \T\ fall precautionary measures) done, Used ambulatory aids as needed (educated on \T\ assisted with), Used gait belt as appropriate. Abuse screen: Denies threats or abuse. Nutritional screening: No deficits noted. Tuberculosis screening: No symptoms or risk factors identified. Assessment: 18:34 General: Appears in no apparent distress. Behavior is calm, cooperative, appropriate ap3 for age. Pain: Complains of pain in right \T\ left Achilles Pain currently is 7 out of 10 on a pain scale. Pain began gradually. Neuro: Level of Consciousness is awake, alert, obeys commands, Oriented to person, place, time, situation, Appropriate for age Gait is steady, Speech is normal. Cardiovascular: Patient's skin is warm and dry. Respiratory: Airway is patent Respiratory effort is even, unlabored, Respiratory pattern is regular, symmetrical. 19:15 General: Appears in no apparent distress. uncomfortable, well groomed, well developed, me1 well nourished, Behavior is calm, cooperative, appropriate for age, Reports bilateral achilles pain x 2 weeks. Pain: Complains of pain in right leg and right foot and right Achilles Pain does not radiate. Pain currently is 4 out of 10 on a pain scale. Quality of pain is described as sharp, Pain began 2 wks ago Is continuous. Neuro: Level of Consciousness is awake, alert, obeys commands, Oriented to person, place, time, situation, Appropriate for age. Cardiovascular: Patient's skin is warm and dry. Respiratory: Airway is patent Respiratory effort is even, unlabored, Respiratory pattern is regular, symmetrical. GI: No signs and/or symptoms were reported involving the gastrointestinal system. : No signs and/or symptoms were reported regarding the genitourinary system. EENT: No signs and/or symptoms were reported regarding the EENT system. Derm: Skin is intact, is healthy with good turgor, Skin is pink, warm \T\ dry. Musculoskeletal: Reports pain in left leg and right leg and right foot and right Achilles. Vital Signs: 15:50 BP 134 / 84; Pulse 62; Resp 16; Temp 97.1; Pulse Ox 100% on R/A; Weight 68.04 kg; iw Height 5 ft. 5 in. ; Pain 7/10; 19:30 BP 128 / 79; Pulse 64; Resp 16; Temp 98.2; Pulse Ox 100% ; me1 15:50 Body Mass Index 24.96 (68.04 kg, 165.1 cm) iw 15:50 Pain Scale: Adult iw ED Course: 15:23 Patient arrived in ED. sj2 15:36 Golden Mike MD is Attending Physician. [facility] 15:51 Triage completed. iw 15:51 Arm band placed on. iw 16:31 Ankle Right 3 View XRAY In Process Unspecified. EDMS 16:31 Ankle Left 3 View XRAY In Process Unspecified. EDMS 18:05 Patient placed in an exam room, on a stretcher. ll1 18:36 Patient has correct armband on for positive identification. Bed in low position. Call ap3 light in reach. Side rails up X 1. Provided Education on: call light education. 19:11 Po Luna MD is Referral Physician. [facility] 19:15 No provider procedures requiring assistance completed. Patient did not have IV access me1 during this emergency room visit. 19:18 Melida Narvaez, RN is Primary Nurse. me1 Administered Medications: 19:24 Drug: Ibuprofen PO 600 mg PO once Route: PO; me1 19:27 Follow up: Response: No adverse reaction me1 Medication: 19:15 VIS not applicable for this client. me1 Outcome: 19:11 Discharge ordered by . [facility] 19:30 Discharged to home ambulatory, me1 19:30 Condition: stable 19:30 Discharge instructions given to patient, Instructed on discharge instructions, follow up and referral plans. Demonstrated understanding of instructions, follow-up care, 19:30 Patient left the ED. me1 Signatures: Dispatcher [employer] [facility] Golden Mike MD MD cha Williams, Irene, RN RN Linda Dover RN RN ap3 Jc Marmolejo RN RN [facility] Melida Narvaez, VLAD RN ri1 Myra Caballero 2
--- NOTE | 2024-02-12 19:12 | EDPHYS ---
Physician Documentation [facility] Name: Henri Correa Age: 23 yrs Sex: Male : 2000 Arrival Date: 02/12/2024 Time: 15:14 Bed 12 Private MD: FABIAN Physician Golden Mike HPI: 02/11 19:07 This 23 yrs old Black Male presents to ER via Ambulatory with complaints of Foot Pain, toma ACHILLES PAIN. 19:07 The patient presents with pain, that is acute. The complaints affect the right leg and toma left leg. Context: The problem was sustained at home, resulted from pushing heavy things. Onset: The symptoms/episode began/occurred 2 week(s) ago. Modifying factors: The symptoms are alleviated by elevation of extremity, the symptoms are aggravated by movement. Associated signs and symptoms: The patient has no apparent associated signs or symptoms. Severity of symptoms: At their worst the symptoms were mild, in the emergency department the symptoms are unchanged. The patient has not experienced similar symptoms in the past. Historical: - Allergies: 15:51 No Known Allergies; iw - Home Meds: 15:51 None [Active]; iw - PMHx: 15:51 None; iw - PSHx: 15:51 None; iw - Immunization history:: Adult Immunizations. - Infectious Disease History:: Denies. - Social history:: Smoking status: Reported history of juuling and/or vaping. - Family history:: not pertinent. ROS: 19:07 Constitutional: Negative for fever, chills, and weight loss, Eyes: Negative for injury, toma pain, redness, and discharge, ENT: Negative for injury, pain, and discharge, Neck: Negative for injury, pain, and swelling, Cardiovascular: Negative for chest pain, palpitations, and edema, Respiratory: Negative for shortness of breath, cough, wheezing, and pleuritic chest pain, Abdomen/GI: Negative for abdominal pain, nausea, vomiting, diarrhea, and constipation, Back: Negative for injury and pain, : Negative for injury, bleeding, discharge, and swelling, Skin: Negative for injury, rash, and discoloration, Neuro: Negative for headache, weakness, numbness, tingling, and seizure, Psych: Negative for depression, anxiety, suicide ideation, homicidal ideation, and hallucinations, Allergy/Immunology: Negative for hives, rash, and allergies, Endocrine: Negative for neck swelling, polydipsia, polyuria, polyphagia, and marked weight changes, Hematologic/Lymphatic: Negative for swollen nodes, abnormal bleeding, and unusual bruising, 19:07 MS/extremity: Positive for pain, of the right leg and left leg, Exam: 19:07 Constitutional: This is a well developed, well nourished patient who is awake, alert, toma and in no acute distress. Head/Face: Normocephalic, atraumatic. Eyes: Pupils equal round and reactive to light, extra-ocular motions intact. Lids and lashes normal. Conjunctiva and sclera are non-icteric and not injected. Cornea within normal limits. Periorbital areas with no swelling, redness, or edema. ENT: Nares patent. No nasal discharge, no septal abnormalities noted. Tympanic membranes are normal and external auditory canals are clear. Oropharynx with no redness, swelling, or masses, exudates, or evidence of obstruction, uvula midline. Mucous membranes moist. Neck: Trachea midline, no thyromegaly or masses palpated, and no cervical lymphadenopathy. Supple, full range of motion without nuchal rigidity, or vertebral point tenderness. No Meningismus. Chest/axilla: Normal chest wall appearance and motion. Nontender with no deformity. No lesions are appreciated. Cardiovascular: Regular rate and rhythm with a normal S1 and S2. No gallops, murmurs, or rubs. Normal PMI, no JVD. No pulse deficits. Respiratory: Lungs have equal breath sounds bilaterally, clear to auscultation and percussion. No rales, rhonchi or wheezes noted. No increased work of breathing, no retractions or nasal flaring. Abdomen/GI: Soft, non-tender, with normal bowel sounds. No distension or tympany. No guarding or rebound. No evidence of tenderness throughout. Back: No spinal tenderness. No costovertebral tenderness. Full range of motion. Male : Normal genitalia with no discharge or lesions. Skin: Warm, dry with normal turgor. Normal color with no rashes, no lesions, and no evidence of cellulitis. Neuro: Awake and alert, GCS 15, oriented to person, place, time, and situation. Cranial nerves II-XII grossly intact. Motor strength 5/5 in all extremities. Sensory grossly intact. Cerebellar exam normal. Normal gait. Psych: Awake, alert, with orientation to person, place and time. Behavior, mood, and affect are within normal limits. 19:07 Musculoskeletal/extremity: ROM: no acute changes, intact in all extremities, full active range of motion, full passive range of motion, Circulation is intact in all extremities. Sensation intact. Compartment Syndrome exam of affected extremity: is normal. Joints: All joints appear normal with full range of motion. Weight bearing: able to fully bear weight, DVT Exam: no swelling, no tenderness, negative Homans' sign noted on exam, no appreciated bluish discoloration, no erythema, no increased warmth, pain, Vital Signs: 15:50 BP 134 / 84; Pulse 62; Resp 16; Temp 97.1; Pulse Ox 100% on R/A; Weight 68.04 kg; iw Height 5 ft. 5 in. ; Pain 7/10; 19:30 BP 128 / 79; Pulse 64; Resp 16; Temp 98.2; Pulse Ox 100% ; me1 15:50 Body Mass Index 24.96 (68.04 kg, 165.1 cm) iw 15:50 Pain Scale: Adult iw MDM: 15:36 Patient medically screened. toma 19:09 Differential diagnosis: sprain, arthritis, gout. Data reviewed: vital signs, nurses toma notes, radiologic studies, plain films. Consideration of Admission/Observation Escalation of care including admission/observation considered. I considered the following discharge prescriptions or medication management in the emergency department Medications were administered in the Emergency Department. See MAR. Independent interpretation of the following test(s) in the Emergency Department X-Ray: My interpretation is bilateral ankles. Test considered but Not performed: Ultrasound no evidence od clot , no trama, no stasis, no hcs. 02/11 16:10 Order name: Ankle Right 3 View XRAY; Complete Time: 19:06 toma 02/11 16:10 Order name: Ankle Left 3 View XRAY; Complete Time: 19:06 [facility] Administered Medications: 19:24 Drug: Ibuprofen PO 600 mg PO once Route: PO; me1 19:27 Follow up: Response: No adverse reaction me1 Disposition Summary: 02/12/24 19:11 Discharge Ordered Notes: Location: Home toma Problem: new toma Symptoms: have improved toma Condition: Stable toma Diagnosis - Unspecified symptoms and signs involving the musculoskeletal system toma Followup: toma - With: Private Physician - When: 2 - 3 days - Reason: Recheck today's complaints, Continuance of care, Re-evaluation by your physician Followup: toma - With: Po Luna MD - When: 2 - 3 days - Reason: Recheck today's complaints, Re-evaluation by your physician Discharge Instructions: - Discharge Summary Sheet toma - Musculoskeletal Pain toma Forms: - Medication Reconciliation Form toma - Antibiotic Education toma - Prescription Opioid Use toma - Patient Portal Instructions toma - Leadership Thank You Letter toma Prescriptions: - Ibuprofen 600 mg Oral tablet - take 1 tablet ORAL route every 6 hours As needed take with food; 20 tablet; toma Refills: 0, Product Selection Permitted Signatures: Dispatcher [employer] Golden Gao MD MD cha Williams, Irene RN RN Melida Narvaez RN RN me1
[2024-02-12] MEDS ORDERED: IBUPROFEN 200 MG TAB PO ONE (19:18)
[2024-02-12 19:43] VITALS: O2SAT 100
[2024-02-12 19:48] VITALS: BP 128/79; TEMP 98.2
== END 2024-02-12 19:30 | disposition home or self-care (01) ==
LOC: ER 15:14
DX: R29.91 Unspecified symptoms and signs involving the musculoskeletal system (principal)
CPT/HCPCS: 99283

== ENCOUNTER 2024-03-14 08:33 | Emergency (ER) | payer BC ==
--- OUTSIDE RECORDS SUMMARY | 2024-03-14 08:36 | XMS REPORT | Continuity of Care Document ---
Author Name Unknown Address [address] [facility] [address] [place] [address] [facility] thconnect Address [address] [facility] [address] [place] [address] Care Team Providers Care Layout Operator Name Role Phone NO, PCP Primary Care Physician Unavailab Daron Irizarry Attending Clinician Unavailable Eduard Aguiar Attending Clinician Unavailable JASPREET ARNDT Attending Clinician Unavailable BEVERLY CACERES Attending Clinician Unavailable HARJEET VELA - Attending Clinician Unavailab le Physician, No Primary or Family Admitting Clinic apple Unavailable JASPREET ARNDT Admitting Clinician Unavailable BEVERLY CACERES Admitting Clinician Unavailable HARJEET VELA - Admitting Clinician Unavailab james Payers Payer Name Policy Type Policy Number Effective Date Expirati on Date Source 2 C [id number] Allergies, Adverse Reactions, Alerts Allergy Name Allergy Type Status Severity Reaction(s) Onset Date Inactive Date Treating Clinician Comments Source No Known Allergie s DA Active U 06-25 00:00: 00 [facility] No known drug Allergie s Miscella neous Allergy Active U Not Specified 2020-06 15:30: 25 [facility] No known drug Allergie s Miscella neous Allergy Active U Not Specified 2020-06 15:30: 25 [facility] ([facility]) No known drug Allergie s Miscella neous Allergy Active U Not Specified 2020-06 15:30: 25 [facility] ([facility]) No known drug Allergie s Miscella neous Allergy Active U Not Specified 2020-06 15:30: 25 [facility] ([facility]) No known drug Allergie s Miscella neous Allergy Active U Not Specified 2020-06 15:30: 25 [facility] ([facility]) No known drug Allergie s Miscella neous Allergy Active U Not Specified 2020-06 15:30: 25 [facility] ([facility]) No known drug Allergie s Miscella neous Allergy Active U Not Specified 2020-06 15:30: 25 [facility] ([facility]) No known drug Allergie s Miscella neous Allergy Active U Not Specified 2020-06 15:30: 25 [facility] ([facility]) No known drug Allergie s Miscella neous Allergy Active U Not Specified 2020-06 15:30: 25 [facility] ([facility]) No Known Allergie s NA Active 2020-06 15:30: 19 [facility] ([facility]) No Known Allergie s NA Active 2020-06 15:22: 28 [facility] ([facility]) No Known Allergie s NA Active 2020-06 10:25: 33 [facility] ([facility]) No Known Allergie s NA Active 2020-06 16:48: 01 [facility] ([facility]) No Known Allergie s NA Active 2020-06 15:17: 04 [facility] ([facility]) No Known Allergie s NA Active 2020-06 15:07: 30 [facility] ([facility]) No Known Allergie s NA Active 10-26 12:40: 47 [facility] ([facility]) No Known Allergie s NA Active 09-30 08:53: 23 [facility] ([facility]) No Known Allergie s NA Active 09-23 10:56: 06 [facility] No Known Allergie s NA Active 09-22 01:11: 02 [facility] ([facility]) No Known Allergie s NA Active 09-21 21:45: 20 [facility] No Known Allergie s NA Active 09-21 21:13: 14 [facility] Encounters Start Date/Time End Date/Time Encounter Type Admission Type Attending [facility] Facility Care Department Encounter ID Source 2023-10-26 19:33:00 2023-10-26 20:19:00 Emergency EM [facility] Partida [facility] [id number] [facility] 2023-06-25 11:28:00 2023-06-25 12:39:00 Emergency EM Eduard Aguiar [facility] [id number] [facility] 2021-04-26 16:36:00 2021-04-26 19:23:00 [facility] Department [facility] [id number] 2021-04-26 10:36:00 2021-04-26 13:23:00 Outpatient Encounter 1 JASPREET ARNDT [facility] [id number] [facility] 2021-04-08 20:22:00 2021-04-08 22:15:00 Emergency Department [facility] [id number] 2021-04-08 15:22:00 2021-04-08 17:15:00 Outpatient Encounter JASPREET ARNDT [facility] [id number] [facility] ([facility]) 2021-04-01 20:07:00 2021-04-01 21:47:00 [facility] Department [facility] [id number] 2021-04-01 15:07:00 2021-04-01 16:47:00 Outpatient Encounter BEVERLY CACERES [facility] [id number] [facility] ([facility]) 2020-09-22 07:09:35 2020-09-22 07:09:35 Emergency HARJEET VELA [facility] [id number] [facility] ([facility]) Results Test Description Test Time Test Comments Results Result Co mments Source INFLUENZA [id number] 12:29:00* Test Item Value Reference Range Interpretation Comme nts FLU A (test code = FLU A) NEGATIVE NEGATIVE FLU B (test code = FLU B) NEGATIVE NEGATIVE FLU INTERNAL POSITIVE CNTRL (test code = FLU IPC) PASS PASS INFLUENZA LOT # (test code = FLULOT) [id number] INFLUENZA EXPIRATION DATE (t est code = FLUEXP) 09-23 Influenza virus A+B Ag [Presence] in Nose by [id number] 12:29:00* Test Item Value Reference Range Interpretation Comme nts FLU INTERNAL POSITIVE CNTRL (test code = FLU IPC) PASS PASS N INFLUENZA LOT # (test code = FLULOT) [id number] 1 N INFLUENZA EXPIRATION DATE (t est code = FLUEXP) 09-23 N [facility])COVID SYMPTOMATIC ER [id number] 12:05:00* Test Item Value Reference Range Interpretation Comme nts CORONAVIRUS (COVID-19)BY PCR (test code = SVF35IVW) NEGATIVE SARS-CoV-2 (COVID-19) N gene [Presence] in [id number] 12:05:00Negative [facility])SARS-CoV-2 (COVID-19) N gene [Presence] in Resp 2021-04-26 12:05:[facility]TROPONIN [id number] 11:55:00* Test Item Value Reference Range Interpretation Comme nts TROPER (test code = TROPER) 0.00 NG/ML 0.0-0.08 INTERPRETIVE DATA A POC TROPONIN OF </= 0.08 NG/ML IS CONSIDERED NEGATIVE Troponin T.cardiac [Mass/volume] in [id number] 11:55:00* Test Item Value Reference Range Interpretation Comme nts Troponin T.cardiac [Mass/vol ume] in Blood (test code = 82937-2) 0.0 NG/ML 0.0-0.08 N [facility])Ribs - bilateral and Chest X-ray 2 views and PA 2021-04-26 11:50:00* Test Item Value Reference Range Interpretation Comme nts Ribs - bilateral and Chest X-ray 2 views and PA chest (test code = 27156-5) [address] [address] DIAGNOSTIC IMAGING REPORT Patient Name: VANESSA ROUSE Date of Service: 04-26-2021 Age: 20 Sex: M Order #: 100 Room: [facility] : 2000 X-Ray Number: [id number] Hospital Number: [id number] Admitting Physician: JASPREET ARNDT Ordering Physician: JORGE [...] authenticated by MARIA ESTHER WALDRON 2021-04-26 11:47:35 [facility])CHEST XR 2 [id number] 11:50:00 [facility] Vaughn : 2000 Sex: M[address] [id number] IMAGING REPORTPatient Name: VANESSA ROUSEDate of Service: [id number]: 20 Sex: M Order #: 100 Room: ERSDOB: 2000 X-Ray Number: [id number] Record Number: [id number] Hospital Number: [id number] Physician: Dany ARNDTering Physician: JORGE RODRIGES -LEONOR XR 2 VIEWS 04/26/2021 11:29 AM:History: Cough without fever . Chest wall pain.Comparison: 04/08/2021Technique: 2 view chestFindings:The cardiomediastinal silhouette is normal. The lungs are clear withoutinfiltrate, effusion, or pneumothorax. The bones are intact.Impression:No acute cardiopulmonary process.Electronically Si gned By: Chivo Ramirez M.D., 04/26/2021 11:47 AMLegally authenticated by MARIA ESTHER WALDRON 2021-04-26 11:47:35Chest X-ray AP portable single [id number] 16:37:00* Test Item Value Reference Range Interpretation Comme [facility] Chest X-ray AP portable single view (test code = 88712-6) [address] [address] DIAGNOSTIC IMAGING REPORT Patient Name: VANESSA ROUSE Date of Service: 04-08-2021 Age: 20 Sex: M Order #: [id number] Room: ERS : 2000 X-Ray Number: [id number] Hospital Number: [id number] Admitting Physician: JASPREET ARNDT Ordering Physician: PHILLY [...] authenticated by MARIA ESTHER WALDRON 2021-04-08 16:34:39 [facility]CHEST 1 VIEW [id number] 16:37:00 [facility] Roderick : 2000 Sex: M[address] [id number] IMAGING REPORTPatient Name: VANESSA ROUSEDate of Service: [id number]: 20 Sex: M Order #: 200 [facility] 2000 [facility] Number: [id number] Record Number: [id number] Hospital Number: [id number] Physician: Ashley ARNDT Physician: PHILLY BANDA -CHEST 1 VIEW PORTABLE 04/08/2021 4:26 PM:History: SOB/SOA . Shortness of breath with chest painComparison: 04/01/2021Technique: 1 view chestFindings:The cardiomediastinal silhouette is normal. The lungs are clear withoutinfiltrate, effusion, or pneumothorax. The bones are intact.Impression:No acute cardiopulmonary process.Electronically Signed By: Chivo Ramirez M.D., 04/08/2021 4:34 PMLegally authenticated by MARIA ESTHER WALDRON 2021-04-08 16:34:39INFLUENZA [id number] 16:10:00* Test Item Value Reference Range Interpretation Comme nts FLU A (test code = FLU A) NEGATIVE NEGATIVE FLU B (test code = FLU B) NEGATIVE NEGATIVE FLU INTERNAL POSITIVE CNTRL (test code = FLU IPC) PASS PASS INFLUENZA LOT # (test code = FLULOT) [id number] INFLUENZA EXPIRATION DATE (t est code = FLUEXP) [id number] Influenza virus A+B Ag [Presence] in Nose by [id number] 16:10:00* Test Item Value Reference Range Interpretation Comme nts FLU INTERNAL POSITIVE CNTRL (test code = FLU IPC) PASS PASS N INFLUENZA LOT # (test code = FLULOT) [id number] 1 N INFLUENZA EXPIRATION DATE (t est code = FLUEXP) [id number] 1 N [facility])Chest X-ray AP portable single [id number] 15:38:00* Test Item Value Reference Range Interpretation Comme nts Chest X-ray AP portable single view (test code = 97856-5) [address] [address] DIAGNOSTIC IMAGING REPORT Patient Name: VANSESA ROUSE Date of Service: 04-01-2021 Age: 20 Sex: M Order #: 100 Room: [facility] : 2000 X-Ray Number: [id number] Hospital Number: [id number] Admitting Physician: BEVERLY CACERES Ordering Physician: ADORE PIEDRA.04/01/2021 3:31 PMHistory: Cough and congestion.Technique: Single AP chest projection.Findings: Single chest projection demonstrates normal heart size and clear lungs. The osseous structures appear intact.Impression:No acute-appearing cardiopulmonary abnormalities.Electronical ly Signed By: Davide Padron M.D., 04/01/2021 3:36 PMLegally authenticated by CHAPARRO Lopez 2021-04-01 15:36:11 [facility])CHEST 1 VIEW [id number] 15:38:00 [facility] : 2000 Sex: [facility] [place], [place] [address]YMJBTJPSTQ IMAGING REPORTPatient Name: VANESSA ROUSEDate of Service: [id number]: 20 Sex: M Order #: 100 Room: ERSDOB: 2000 X-Ray Number: [id number] Record Number: [id number] Hospital Number: [id number] Physician: BEVERLY CACERESOrdering Physician: ADORE PIEDRA.04/01/2021 3:31 PMHistory: Cough and congestion.Technique: Single AP chest projection.Findings: Single chest projection demonstrates normal heart size and clearlungs. The osseous structures appear intact.Impression:No acute-appearing cardiopulmonary abnormalities.Electronically Signed By: Davide Padron M.D., 04/01/2021 3:36 PMLegally authenticated by CHAPARRO Lopez 2021-04-01 15:36:11COVID SYMPTOMATIC ER [id number] 15:30:00* Test Item Value Reference Range Interpretation Comme nts CORONAVIRUS (COVID-19)BY PCR (test code = TBX03ZXU) NEGATIVE SARS-CoV-2 (COVID-19) N gene [Presence] in [id number] 15:30:00Negative [facility])SARS-CoV-2 (COVID-19) N gene [Presence] in Resp 2021-04-01 15:30:00[facility])BLOOD [id number] 10:03:00* Test Item Value Reference Range Interpretation Comme nts Report Text (test code = Report Text) [facility] 2020-09-22 453 Report Text7 (test code = Report Text7) BLOOD CULTURES HELD FOR 5 DAYS BEFORE FINAL Report Text8 (test code = Report Text8) Report Text9 (test code = Report Text9) [place] SUGGESTS THAT Report Text10 (test code = Report Text10) MOST CASES OF BACTEREMIA ARE DETECTED BY USING Report Text11 (test code = Report Text11) THREE SETS OF SEPARATELY COLLECTED BLOOD CULTURES. Report Text12 (test code = Report Text12) [facility] 2020-09-22 454 Report Text13 (test code = [...] Report Text18 (test code = Report Text18) [facility] 2020-09-22 455 Report Text19 (test code = Report Text19) COLLECTION SITE UNSPECIFIED Report Text20 (test code = Report Text20) [facility] 2020-09-22 1414 Report Text21 (test code = Report Text21) NO GROWTH WITHIN 1 DAY Report Text22 (test code = Report Text22) PRELIMINARY REPORT Report Text23 (test code = Report Text23) Report Text24 (test code = Report Text24) [facility] 2020-09-23 647 Report Text25 (test code = Report Text25) NO GROWTH WITHIN 2 DAYS Report Text26 (test code = Report Text26) PRELIMINARY REPORT Report Text27 (test code = Report Text27) Report Text28 (test code = Report Text28) [facility] 2020-09-26 1003 Report Text29 (test code = Report Text29) NO GROWTH WITHIN 5 DAYS Report Text30 (test code = Report Text30) FINAL REPORT NEG STREP SCRN CONFIRM [id number] 08:11:00* Test Item Value Reference Range Interpretation Comme nts Report Text (test code = Report Text) [facility] 2020-09-22 1138 Report Text7 (test code = Report Text7) NORMAL RESPIRATORY NIYA ISOLATED Report Text8 (test code = Report Text8) PRELIMINARY REPORT Report Text9 (test code = Report Text9) Report Text10 (test code = Report Text10) [facility] 2020-09-23 811 Report Text11 (test code = Report Text11) STREP SCREEN NEGATIVE, CULTURE NEGATIVE FOR Report Text12 (test code = Report Text12) GROUP A STREP - FINAL REPORT. CHEST XR 2 [id number] 07:09:00 [facility] Roderick : 2000 Sex: [facility] [place] [address]WUHYAILCSP IMAGING REPORTPatient Name: VANESSA ROUSEDate of Service: [id number]: 19 Sex: M Order #: 700 Room: ERSDOB: 2000 X-Ray Number: [id number] Record Number: [id number] Hospital Number: [id number] Physician: HARJEET VELA -Ordering Physician: ADELAIDE RODRIGES XR 2 VIEWS 09/21/2020 10:14 PMHistory: Cough with feverComparisons: None Available.CHEST:FINDINGS:Heart size is normal.There is no focal lung consolidation.There is no definite pleural effusion or pneumothorax identified.IMPRESSION:No acute cardiopulmonary process.EMERGENT INTERPRETATION PROVIDED BY [facility].Electronically Signed By: Juan Lara M.D., 09/22/2020 7:06 AMLegally authenticated by NOEL SHERMAN 2020-09-22 07:06:58INFLUENZA [id number] 00:08:00 * Test Item Value Reference Range Interpretation Comme nts FLU A (test code = FLU A) NEGATIVE NEGATIVE FLU B (test code = FLU B) NEGATIVE NEGATIVE FLU INTERNAL POSITIVE CNTRL (test code = FLU IPC) PASS PASS INFLUENZA LOT # (test code = FLULOT) [id number] INFLUENZA EXPIRATION DATE (t est code = FLUEXP) 10-18-2022 COVID SYMPTOMATIC ER [id number] 00:00:00* Test Item Value Reference Range Interpretation Comme nts CORONAVIRUS (COVID-19)BY PCR (test code = RXW98EGE) POSITIVE BMP, BASIC METABOLIC [id number] 23:37:00* Test Item Value Reference Range Interpretation [...] H Fasting glucos e normal <100 MG/DL- [place] [employer] recommendation CALCIUM (test code = CABLOOD) 9.5 MG/DL 8.4-10.2 GFR (test code = GFR) 101 mL/min/1.73m2 A GFR of >90 mL/min/1.73m2 is considered normal. The GFR calculation on patients over 70 years of age is not validated by the paper bags sewing machine operator and may not represent the patients true renal function. GROUP A STREP [id number] 23:21:00* Test Item Value Reference Range Interpretation Comme nts GROUP A STREP SCREEN (test code = STREPGRA) NEGATIVE NEGATIVE Culture set up to confirm negative Strep Screen STREP A INTERNAL POS CNTRL (test code = STRPAIPC) PASS PASS STREP A LOT # (test code = STRPALOT) [id number] STREP A EXPIRATION DATE (test code = STRPAEXP) Culture set up to confirm negative Strep [id number] 23:14:00* Test Item Value Reference Range Interpretation [...] NEUT) 3.8 K/UL 1.2-7.2 US EXTREMITY NON-VAS [id number] 15:32:[address] [address]XOHJHETQGO IMAGING REPORTPatient Name: VANESSA ROUSE JDate of Service: 44-16-3110Aer: 18 Sex: M Order #: 100 Room: OPEDOB: 2000 X-Ray Number: [id number] Record Number: [id number] Hospital Number: [id number] Physician: STEFANO POWELLOrdering Physician: STEFANO POWELL extremity [...] Notes Date/Time Note Provider Source 2023-10-26 19:54:00 [facility] ([facility]) EMERGENCY PROVIDER REPORT REPORT#:[id number] REPORT STATUS: Signed DATE:10/26/23 TIME: 1953 PATIENT: VANESSA ROUSE UNIT #: [id number] ROOM/BED: AGE: 22 SEX: M PCP PHYS: No Primary or Family Physician SERVICE AUTHOR: Radha Valiente LOCATION: [facility] * ALL edits or amendments must be [...] Parts of this note were created using [employer] speech recognition dictation software. All things were made to correct any errors at the time of dictation, however there may be some errors present in the secretary book keeper that were inadvertently overlooked during the dictation. [...] Departure Forms LOW COST OR [facility] PCP LIST Discharge Note I have spoken [...] Welch DPM Follow-Up: Call for appointment Address: [address] [facility] [address] [place] [address] Provider Referral: Winsome Pike DPM Follow-Up: Call for appointment Address: [address] [facility] [address] [place] [id number] Provider Referral: Hiren Aguiar DPM Follow-Up: Call for appointment Address: [address] [facility] [facility] [address] [place] [id number] Supervising Physician Note Adalberto Saw Pt Alone I have reviewed the PA/HAND BUTTON SPLITTER's note and plan of care. I was available for consultation as needed at all times during the patient's visit in the emergency department. I agree with the clinical impression, plan and disposition. at 2106 at 0144 RPT #:[id number] END OF REPORT [facility] 2023-10-26 19:38:00 [facility] ([facility]) EMERGENCY PROVIDER REPORT REPORT#:[id number] REPORT STATUS: Signed DATE:10/26/23 TIME: 1937 PATIENT: VANESSA ROUSE UNIT #: [id number] ROOM/BED: AGE: 22 SEX: M PCP PHYS: No Primary or Family Physician SERVICE DT: AUTHOR: Beto Muñiz LOCATION: [facility] * ALL edits or amendments must be [...] Parts of the note were created using [employer] speech recognition dictation software. All attempts were made to correct any errors at the time of dictation, however there may be some errors present in the secretary book keeper that were inadvertently overlooked during the dictation. PMH-Provider in Triage Stated Complaint RT GREAT TOE PAIN/INGROWN TOENAIL Allergies Coded Allergies: No Known Allergies (06/25/23) Home Medications Active Scripts AMOXICILLIN (AMOXIL) 875 MG PO Q12HR 10 Days #20 TABS Prov: 06/25/23 Smoking status: Smoking status for patients 13 years old or older: Never Smoker at 1938 RPT #:[id number] END OF REPORT [facility] 2023-06-25 12:35:00 [facility] ([facility]) EMERGENCY PROVIDER REPORT REPORT#:[id number] REPORT STATUS: Signed DATE:06/25/23 TIME: 1235 PATIENT: VANESSA ROUSE UNIT #: [id number] ROOM/BED: AGE: 22 SEX: M PCP PHYS: No Primary or Family Physician SERVICE AUTHOR: Nicolasa George LOCATION: [facility] * ALL edits or amendments must be [...] behind TM purulent, External canal red, External thaw shed heater tender, Ext canal foreign body, Discharge purulent, Discharge bloody, Ext canal cerumen impact, Mastoid area red, Mastoid area tender, [place] red, [place] tender. Left Ear/Mastoid Tympanic membrane red. Negative: Tympanic membrane bulging, Tympanic memb perforated, Tympanic memb retracted, Bullous myringitis, Fluid behind TM clear, Fluid behind TM purulent, External canal red, External thaw shed heater tender, Ext canal foreign body, Discharge purulent, Discharge bloody, Ext canal cerumen impact, Mastoid area red, Mastoid area tender, [place] red, [place] tender. MS Neck Neck Atraumatic, Supple, No [...] Saw Pt Alone I have reviewed the PA/HAND BUTTON SPLITTER's note and plan of care. I was available for consultation as needed at all times during the patient's visit in the emergency department. I agree with the clinical impression, plan and disposition. at 1400 at 1605 [facility] #:[id number] END OF REPORT HCAWU PATIENT OPEN ORDERS Code System Description Frequency Occurrences Priority Start Date Ordering Physician EKGW MEDHOST EKG ONE TIME 0 Stat April 26, 2021 5:10:00 PM [facility] ANDREW Mak NP [facility]2021-11-24 13:24:12 PATIENT OPEN ORDERS Code System Description Frequency Occurrences Priority Start Date Ordering Physician EKGW MEDHOST EKG ONE TIME 0 Stat April 26, 2021 5:10:00 PM [facility] ANDREW Mak [facility]2021-11-24 11:47:35[place] [address] DIAGNOSTIC IMAGING REPORT Patient Name: VANESSA ROUSE Date of Service: 04-26-2021 Age: 20 Sex: M Order #: 100 Room: [facility] : 2000 X-Ray Number: [id number] Hospital Number: [id number] Admitting Physician: JASPREET ARNDT Ordering Physician: JORGE [...] by MARIA ESTHER WALDRON 2021-04-26 11:47:35MOCHIVO DANIELS [id number] 16:34:39[place] [address] DIAGNOSTIC IMAGING REPORT Patient Name: VANESSA ROUSE Date of Service: 04-08-2021 Age: 20 Sex: M Order #: 200 Room: [facility] : 2000 X-Ray Number: [id number] Hospital Number: [id number] Admitting Physician: JASPREET ARNDT Ordering Physician: PHILLY [...] by MARIA ESTHER WALDRON 2021-04-08 16:34:39MOCHIVO DANIELS [id number] 15:36:11[place] [address] DIAGNOSTIC IMAGING REPORT Patient Name: VANESSA ROUSE Date of Service: 04-01-2021 Age: 20 Sex: M Order #: 100 Room: [facility] : 2000 X-Ray Number: [id number] Hospital Number: [id number] Admitting Physician: BEVERLY CACERES Ordering Physician: ADORE PIEDRA - Chest.04/01/2021 3:31 PM History: Cough and congestion. Technique: Single AP chest projection. Findings: Single chest projection demonstrates normal heart size and clear lungs. The osseous structures appear intact. Impression: No acute-appearing cardiopulmonary abnormalities. Electronically Signed By: Davide Padron M.D., 04/01/2021 3:36 PM Legally authenticated by CHAPARRO Lopez 2021-04-01 15:36:11DAVIDE PADRON [id number] 07:06:58[place] [address] DIAGNOSTIC IMAGING REPORT Patient Name: VANESSA ROUSE Date of Service: 09-21-2020 Age: 19 Sex: M Order #: [id number] Room: [facility] : 2000 X-Ray Number: [id number] Hospital Number: [id number] Admitting Physician: HARJEET VELA - Ordering Physician: [...]
[2024-03-14 09:18] LABS: Absolute Basophils 0.1 K/uL (0-0.5); Absolute Eosinophils 0.1 K/uL (0-0.5); Absolute Lymphocytes (CBC) 2.3 K/uL (0.7-4.9); Absolute Monocytes 0.8 K/uL (0.1-1.3); Absolute Neutrophil 4.7 K/uL (1.8-8.0); Basophils % 0.8 % (0-1.3); Eosinophils % 1.5 % (0-4.4); Hematocrit 39.2 % (39.6-49.0); Hemoglobin 13.7 g/dL (13.6-17.9); Lymphocytes % 28.7 % (15.3-44.8); MCH 30.6 pg (27.0-35.0); MCHC 34.8 g/dL (32.0-36.0); MPV 8.5 fL (7.6-11.3); Monocytes % 10.3 % (3.3-12.3); Neutrophils % 58.7 % (41.7-73.7); Platelets 218 thou/uL (152-406); RBC Red Blood Cell Count 4.46 M/uL (4.33-5.43); Red Cell Distribution Width 13.1 % (12.1-15.2)
[2024-03-14 09:21] LABS: Specific Gravity 1.023 (1.005-1.030); Sqamous Epithelial None Seen /HPF (None Seen); Urine Bacteria None Seen /HPF (<20); Urine Bilirubin NEGATIVE (Negative); Urine Blood Negative (Negative); Urine Clarity Clear (Clear); Urine Color Yellow (Yellow); Urine Culture Reflex Order NOT NEEDED; Urine Glucose NEGATIVE (Negative); Urine Ketones TRACE (Negative); Urine Micro Reflex YN NO BILL MICROSCOPIC; Urine Mucus Slight /HPF (None Seen); Urine Nitrite NEGATIVE (Negative); Urine Protein TRACE (Negative); Urine RBC <5 /HPF (None Seen); Urine Urobilinogen 1+ (Normal); Urine WBC <5 /HPF (<5)
[2024-03-14 09:26] LABS: Anion Gap 7.2 mEq/L (5.0-15.0); Potassium 3.2 mEq/L (3.5-5.1)
[2024-03-14] MEDS ORDERED: POTASSIUM CL SA 10 MEQ TAB PO ONE (09:31)
--- NOTE | 2024-03-14 10:01 | RAD REPORT ---
EXAMINATION: CT ABDOMEN AND PELVIS WITH CONTRAST CLINICAL INDICATION: induration R groin/pubis region TECHNIQUE: CT abdomen and pelvis was performed, after the administration of IV contrast, as per [facility] protocol. Axial, sagittal and coronal reconstructions were obtained. One or more of the following dose reduction techniques were used: Automated exposure control, adjustment of the mA and k V according to patient size, and iterative reconstruction. Unless otherwise specified, incidental findings do not require dedicated imaging follow-up. COMPARISON: No prior exam. FINDINGS: LOWER CHEST: The visualized lung bases are clear. LIVER: Normal in size and contour. No focal lesion. SPLEEN: Normal size. No focal lesion. PANCREAS: No mass, ductal dilation, or young-pancreatic fluid. ADRENALS: Normal; no mass. KIDNEYS: Normal size and contour. No hydronephrosis. GASTROINTESTINAL TRACT: No evidence of free air, significant intra-abdominal free fluid, bowel obstru ction or abscess. APPENDIX: Normal appendix. LYMPH NODES: Several enlarged right inguinal lymph nodes, largest measuring 2.9 cm in appearing infla med. MUSCULOSKELETAL: No acute or suspicious osseous abnormality. ADDITIONAL FINDINGS: None. IMPRESSION: Several enlarged right inguinal lymph nodes, largest measuring 2.9 cm appearing inflamed.
--- NOTE | 2024-03-14 10:06 | EDPHYS ---
Physician Documentation [facility] Name: Henri Correa Age: 23 yrs Sex: Male : 2000 Arrival Date: 03/14/2024 Time: 08:33 Bed 8 Private MD: ED Physician Tristen Ac HPI: 03/14 09:00 This 23 yrs old Black Male presents to ER via Ambulatory with complaints of Groin Pain. ec2 09:00 Patient arrives today for evaluation of right groin swelling. Reports has been noticing ec2 this for the past several weeks however worsening pain which were prompted evaluation today. Patient reports no fevers or chills, nausea or vomiting. Patient reports no penile discharge. Patient reports no urinary complaints. Patient reports no history of malignancy. Reports no change in size with positional movements.. Historical: - Allergies: 08:40 No Known Allergies; ll1 - Home Meds: 08:40 None [Active]; ll1 - PMHx: 08:40 None; ll1 - PSHx: 08:40 None; ll1 - Immunization history:: Adult Immunizations up to date. - Infectious Disease History:: Denies. - Social history:: Smoking status: Reported history of juuling and/or vaping. Patient denies any tobacco usage or history of. ROS: 09:00 Constitutional: as per hpi ec2 Exam: 09:00 Constitutional: GEN: NAD Head: atraumatic Eyes: EOMI Ears: External ears are ec2 normal. CV: regular rate LUNGS: no respiratory distress ABD: non-distended. : Right groin with firm tender induration, no fluctuance appreciated, no erythema, no warmth, no discharge, nonreducible SKIN: no evidence of rashes MSK: no evidence of trauma Vital Signs: 08:46 BP 144 / 88; Pulse 92; Resp 17; Temp 98.4; Pulse Ox 98% ; Weight 68.04 kg; Height 5 ft. ll1 5 in. ; Pain 7/10; 10:19 Pulse 75; Resp 16; Pulse Ox 100% on R/A; mb9 08:46 Body Mass Index 24.96 (68.04 kg, 165.1 cm) ll1 08:46 Pain Scale: Adult ll1 MDM: 09:00 Data reviewed: vital signs. ED course: Patient arrives today for evaluation of right ec2 groin pain. Examination remarkable for groin findings as above. Will obtain lab work, CT imaging. Differential includes lymphadenopathy, malignancy, initially considered hernia, kidney stone . 09:27 ED course: CBC reassuring, metabolic profile shows slight hypokalemia. Urine is ec2 noninfectious appearing. Pending CT imaging. . 10:05 ED course: CT imaging shows enlarged inguinal lymphadenopathy 2.9 cm in size. Will ec2 treat the patient's pain with medications, will have the patient follow-up with PCP. Will have him monitor and possible follow-up for biopsy with no resolution . 10:05 Patient medically screened. ec2 03/14 08:59 Order name: CBC with Diff; Complete Time: 09:26 ec2 03/14 08:59 Order name: BMP; Complete Time: 09:26 ec2 03/14 08:59 Order name: UAM; Complete Time: 09:26 ec2 03/14 08:59 Order name: CT Abd/Pelvis - IV Contrast Only; Complete Time: 10:04 ec2 03/14 08:59 Order name: IV; Complete Time: 09:10 ec2 Administered Medications: 09:33 Drug: Potassium Chloride PO 40 mEq PO once Route: PO; mb9 10:20 Follow up: Response: No adverse reaction aa5 10:12 Drug: Ketorolac IVP 15 mg IVP once Route: IVP; Site: right upper arm; aa5 10:20 Follow up: Response: No adverse reaction aa5 Disposition Summary: 03/14/24 10:05 Discharge Ordered Notes: Location: Home ec2 Condition: Stable ec2 Diagnosis - Groin Pain ec2 - Hypokalemia ec2 - Acute lymphadenitis, unspecified ec2 Followup: ec2 - With: Private Physician - When: - Reason: Re-evaluation by your physician Discharge Instructions: - Discharge Summary Sheet ec2 - Lymphangitis, Adult ec2 Forms: - Medication Reconciliation Form ec2 - Antibiotic Education ec2 - Prescription Opioid Use ec2 - Patient Portal Instructions ec2 - Leadership Thank You Letter ec2 Prescriptions: - acetaminophen-codeine 300-30 mg Oral tablet - take 1 tablet ORAL route every 12 hours as needed for pain; 10 tablet; Refills: ec2 0, Product Selection Permitted Signatures: Dispatcher [employer] EDMS Stephanie Morel RN RN aa5 Jc Marmolejo, RN RN ll1 Adamaris, Zoey, RN RN mb9 Tristen Ac MD MD ec2
--- NOTE | 2024-03-14 10:06 | ER ---
Nurse's Notes [facility] Name: Henri Correa Age: 23 yrs Sex: Male : 2000 Arrival Date: 03/14/2024 Time: 08:33 Bed 8 Private MD: Diagnosis: Groin Pain;Hypokalemia;Acute lymphadenitis, unspecified Presentation: 03/14 08:46 Chief complaint: Patient states: R back and R groin pain off/on for 2 weeks. Lump ll1 noticed to R groin area recently. Coronavirus screen: Client denies travel out of the [place] in the last 14 days. At this time, the client does not indicate any symptoms associated with coronavirus-19. Ebola Screen: Patient denies travel to an Ebola-affected area in the 21 days before illness onset. Initial Sepsis Screen: Does the patient meet any 2 criteria? No. Patient's initial sepsis screen is negative. Does the patient have a suspected source of infection? No. Patient's initial sepsis screen is negative. Risk Assessment: Do you want to hurt yourself or someone else? Patient reports no desire to harm self or others. Onset of symptoms was March 01, 2024. 08:46 Method Of Arrival: Ambulatory ll1 08:46 Acuity: JESSICA 3 aa5 Triage Assessment: 08:43 General: Appears in no apparent distress. Behavior is calm, cooperative, appropriate ll1 for age. Pain: Complains of pain in R groin Quality of pain is described as aching. Neuro: No deficits noted. Cardiovascular: No deficits noted. Respiratory: No deficits noted. : Reports pain in right groin area, lump felt. Historical: - Allergies: 08:40 No Known Allergies; ll1 - Home Meds: 08:40 None [Active]; ll1 - PMHx: 08:40 None; ll1 - PSHx: 08:40 None; ll1 - Immunization history:: Adult Immunizations up to date. - Infectious Disease History:: Denies. - Social history:: Smoking status: Reported history of juuling and/or vaping. Patient denies any tobacco usage or history of. Screenin:36 [facility] ED Fall Risk Assessment (Adult) History of falling in the last 3 months, mb9 including since admission No falls in past 3 months (0 pts) Confusion or Disorientation No (0 pts) Intoxicated or Sedated No (0 pts) Impaired Gait No (0 pts) Mobility Assist Device Used No (0 pt) Altered Elimination No (0 pt) Score/Fall Risk Level 0 - 2 = Low Risk Oriented to surroundings, Maintained a safe environment, Educated pt \T\ family on fall prevention, incl call for assistance when getting out of bed. Abuse screen: Denies threats or abuse. Nutritional screening: No deficits noted. Tuberculosis screening: No symptoms or risk factors identified. Assessment: 08:40 General: Appears comfortable, Behavior is calm, cooperative, Reports Lump to right aa5 groin that he noticed today. Pain: Denies pain. Neuro: Level of Consciousness is awake, alert, obeys commands, Oriented to person, place, time, situation. Cardiovascular: Patient's skin is warm and dry. Respiratory: Airway is patent Respiratory effort is even, unlabored, Respiratory pattern is regular, symmetrical. GI: Abdomen is non-distended, Bowel sounds present X 4 quads. Abd is soft and non tender X 4 quads. : No signs and/or symptoms were reported regarding the genitourinary system. EENT: No signs and/or symptoms were reported regarding the EENT system. Derm: Skin is dry, Skin is normal, Skin temperature is warm. Musculoskeletal: Range of motion: intact in all extremities. 10:12 Neuro: Level of Consciousness is awake, alert, obeys commands, Oriented to person, aa5 place, time, situation. Respiratory: Airway is patent Respiratory effort is even, unlabored, Respiratory pattern is regular, symmetrical. Derm: Skin is dry, Skin is normal, Skin temperature is warm. Vital Signs: 08:46 BP 144 / 88; Pulse 92; Resp 17; Temp 98.4; Pulse Ox 98% ; Weight 68.04 kg; Height 5 ft. ll1 5 in. ; Pain 7/10; 10:19 Pulse 75; Resp 16; Pulse Ox 100% on R/A; mb9 08:46 Body Mass Index 24.96 (68.04 kg, 165.1 cm) ll1 08:46 Pain Scale: Adult ll1 ED Course: 08:36 Patient arrived in ED. mg5 08:37 Tristen Ac MD is Attending Physician. ec2 08:37 Arm band placed on Patient placed in an exam room, on a stretcher. ll1 08:45 Stephanie Morel, RN is Primary Nurse. aa5 08:48 Triage completed. ll1 09:06 Initial lab(s) drawn, by me, sent to lab. Inserted saline lock: 20 gauge in right upper aa5 arm, using aseptic technique. Blood collected. Flushed with 10 mL NS. 09:11 Urine collected: clean catch specimen, sent to lab. aa5 09:36 Placed in gown. Bed in low position. Call light in reach. Side rails up X 1. Provided mb9 Education on: press call light if needing anything. Client placed on continuous cardiac and pulse oximetry monitoring. NIBP monitoring applied. Door closed. Noise minimized. Warm blanket given. Pillow given. 09:54 No provider procedures requiring assistance completed. aa5 09:55 CT Abd/Pelvis - IV Contrast Only In Process Unspecified. EDMS 10:18 IV discontinued, intact, bleeding controlled, No redness/swelling at site. Pressure aa5 dressing applied. Administered Medications: 09:33 Drug: Potassium Chloride PO 40 mEq PO once Route: PO; mb9 10:20 Follow up: Response: No adverse reaction aa5 10:12 Drug: Ketorolac IVP 15 mg IVP once Route: IVP; Site: right upper arm; aa5 10:20 Follow up: Response: No adverse reaction aa5 Medication: 09:36 VIS not applicable for this client. mb9 Outcome: 10:05 Discharge ordered by . ec2 10:18 Discharged to home ambulatory, aa5 10:18 Condition: stable 10:18 Discharge instructions given to patient, Instructed on discharge instructions, follow up and referral plans. medication usage, Demonstrated understanding of instructions, follow-up care, medications, Prescriptions given X 1, 10:20 Patient left the ED. aa5 Signatures: Dispatcher [employer] EDAL Stephanie Morel, RN VLAD aa5 Jc Marmolejo RN RN ll1 Katiana Bailon RN RN mb9 Nancy More mg5 Tristen Ac MD MD ec2 Corrections: (The following items were deleted from the chart) 08:58 08:46 Acuity: JESSICA 4 ll1 aa5 09:54 08:40 General: Appears comfortable, Behavior is calm, cooperative, Reports Lump to left aa5 groin that he noticed today. aa5
[2024-03-14] MEDS ORDERED: KETOROLAC 30 MG/ML INJ ONE (10:10)
[2024-03-14 12:01] VITALS: BP 144/88; TEMP 98.4
[2024-03-14 12:03] VITALS: O2SAT 100
== END 2024-03-14 10:20 | disposition home or self-care (01) ==
LOC: ER 08:33
DX: L04.1 Acute lymphadenitis of trunk (principal); E87.6 Hypokalemia
CPT/HCPCS: 85025; 81001; 80048; 36415; 74177; Q9967

== ENCOUNTER 2024-05-21 10:41 | Emergency (ER) | payer BC ==
--- OUTSIDE RECORDS SUMMARY | 2024-05-21 10:44 | XMS REPORT | Continuity of Care Document ---
Author Name Unknown Address [address] [facility] [address] [place] [address] [facility] thconnect Address [address] [facility] [address] [place] [address] Care Team Providers Care Assembler [employer] Name Role Phone NO, PCP Primary Care [...] Date Expirati on Date Source 2 C [id number] Allergies, Adverse Reactions, Alerts Allergy Name Allergy Type Status Severity Reaction(s) Onset Date Inactive Date Treating Clinician Comments Source No Known Allergie s DA Active U 06-25 00:00: 00 [facility] No known drug Allergie s Miscella neous Allergy Active U Not Specified 2020-06 15:30: 25 [facility] No known drug Allergie s Miscella neous Allergy Active U Not Specified 2020-06 15:30: 25 [facility]) No known drug Allergie s Miscella neous Allergy Active U Not Specified 2020-06 15:30: 25 [facility] ([facility]) No known drug Allergie s Miscella neous Allergy Active U Not Specified 2020-06 15:30: 25 [facility] ([facility]) No known drug Allergie s Miscella neous Allergy Active U Not Specified 2020-06 15:30: 25 [facility] ([facility]) No known drug Allergie s Miscella neous Allergy Active U Not Specified 2020-06 15:30: 25 [facility] ([facility]) No known drug Allergie s Miscella neous Allergy Active U Not Specified 2020-06 15:30: 25 [facility] ([facility]) No known drug Allergie s Miscella neous Allergy Active U Not Specified 2020-06 15:30: 25 [facility] ([facility]) No known drug Allergie s Miscella neous Allergy Active U Not Specified 2020-06 15:30: 25 [facility] ([facility]) No Known Allergie s NA Active 2020-06 15:30: 19 [facility] ([facility]) No Known Allergie s NA Active 2020-06 15:22: 28 [facility] ([facility]) No Known Allergie s NA Active 2020-06 10:25: 33 [facility] ([facility]) No Known Allergie s NA Active 2020-06 16:48: 01 [facility] ([facility]) No Known Allergie s NA Active 2020-06 15:17: 04 [facility] ([facility]) No Known Allergie s NA Active 2020-06 15:07: 30 [facility] ([facility]) No Known Allergie s NA Active 10-26 12:40: 47 [facility] ([facility]) No Known Allergie s NA Active 09-30 08:53: 23 [facility] ([facility]) No Known Allergie s NA Active 09-23 10:56: 06 [facility] No Known Allergie s NA Active 09-22 01:11: 02 [facility] ([facility]) No Known Allergie s NA Active 09-21 21:45: 20 [facility] No Known Allergie s NA Active 09-21 21:13: 14 [facility] Encounters Start Date/Time End Date/Time Encounter Type Admission Type Attending [facility] Care Department Encounter ID Source 2023-10-26 19:33:00 2023-10-26 20:19:00 Emergency EM [facility] [id number] 28 [facility] 2023-06-25 11:28:00 2023-06-25 12:39:00 Emergency EM Eduard Aguiar [facility] [id number] [facility] 2021-04-26 16:36:00 2021-04-26 19:23:00 [facility] [id number] 2021-04-26 10:36:00 2021-04-26 13:23:00 Outpatient Encounter 1 JASPREET ARNDT [facility] [id number] [facility] 2021-04-08 20:22:00 2021-04-08 22:15:00 Emergency Department [facility] [id number] 2021-04-08 15:22:00 2021-04-08 17:15:00 Outpatient Encounter JASPREET ARNDT [facility] [id number] [facility] ([facility]) 2021-04-01 20:07:00 2021-04-01 21:47:00 [facility] Department [facility] [id number] 2021-04-01 15:07:00 2021-04-01 16:47:00 Outpatient Encounter BEVERLY CACERES [facility] [id number] [facility] ([facility]) 2020-09-22 07:09:35 2020-09-22 07:09:35 Emergency HARJEET VELA [facility] [id number] [facility] ([facility]) Results Test Description Test Time Test Comments Results Result Co mments Source INFLUENZA [id number] 12:29:00* Test Item Value Reference Range Interpretation Comme nts FLU A (test code = FLU A) NEGATIVE NEGATIVE FLU B (test code = FLU B) NEGATIVE NEGATIVE FLU INTERNAL POSITIVE CNTRL (test code = FLU IPC) PASS PASS INFLUENZA LOT # (test code = FLULOT) [id number] INFLUENZA EXPIRATION DATE (t est code = FLUEXP) 09-23 Influenza virus A+B Ag [Presence] in Nose by [id number] 12:29:00* Test Item Value Reference Range Interpretation Comme nts FLU INTERNAL POSITIVE CNTRL (test code = FLU IPC) PASS PASS N INFLUENZA LOT # (test code = FLULOT) [id number] 1 N INFLUENZA EXPIRATION DATE (t est code = FLUEXP) 09-23 N [facility] [place])COVID SYMPTOMATIC ER [id number] 12:05:00* Test Item Value Reference Range Interpretation Comme nts CORONAVIRUS (COVID-19)BY PCR (test code = [id number]) NEGATIVE SARS-CoV-2 (COVID-19) N gene [Presence] in [id number] 12:05:00Negative [facility] [place])SARS-CoV-2 (COVID-19) N gene [Presence] in Resp 2021-04-26 12:05:00[facility] [place]TROPONIN [id number] 11:55:00* Test Item Value Reference Range Interpretation Comme nts TROPER (test code = TROPER) 0.00 NG/ML 0.0-0.08 INTERPRETIVE DATA A POC TROPONIN OF </= 0.08 NG/ML IS CONSIDERED NEGATIVE Troponin T.cardiac [Mass/volume] in [id number] 11:55:00* Test Item Value Reference Range Interpretation Comme nts Troponin T.cardiac [Mass/vol ume] in Blood (test code = 11612-0) 0.0 NG/ML 0.0-0.08 N [facility] [place])Ribs - bilateral and Chest X-ray 2 views and PA 2021-04-26 11:50:00* Test Item Value Reference Range Interpretation Comme nts Ribs - bilateral and Chest X-ray 2 views and PA chest (test code = 26709-0) [address] [address] DIAGNOSTIC IMAGING REPORT Patient Name: VANESSA ROUSE Date of Service: 04-26-2021 Age: 20 Sex: M Order #: [id number] Room: [facility] : 2000 X-Ray Number: [id number] Hospital Number: [id number] Admitting Physician: JASPREET ARNDT Ordering Physician: JORGE RODRIGES - CHEST XR 2 VIEWS 04/26/2021 11:29 AM:History: Cough without fever . Chest wall pain.Comparison: 04/08/2021Technique: 2 view chestFindings: The cardiomediastinal silhouette is normal. The lungs are clear without infiltrate, effusion, or pneumothorax. The bones are intact.Impression: No acute cardiopulmonary process.Electronically Signed By: Remington Ramirez M.D., 04/26/2021 11:47 AMLegally authenticated by MARIA ESTHER WALDRON 2021-04-26 11:47:35 [facility] [place])CHEST XR 2 [id number] 11:50:00 [facility] Vaughn : 2000 Sex: M[address] [id number] IMAGING REPORTPatient Name: VANESSA ROUSEDate of Service: 16-16-1751Mqj: 20 Sex: M Order #: [id number] Room: ERSDOB: 2000 X-Ray Number: [id number] Record Number: [id number] Hospital Number: [id number] Physician: Dany ARNDTering Physician: JORGE RODRIGES -LEONOR XR 2 VIEWS 04/26/2021 11:29 AM:History: Cough without fever . Chest wall pain.Comparison: 04/08/2021Technique: 2 view chestFindings:The cardiomediastinal silhouette is normal. The lungs are clear withoutinfiltrate, effusion, or pneumothorax. The bones are intact.Impression:No acute cardiopulmonary process.Electronically Si gned By: Remington Ramirez M.D., 04/26/2021 11:47 AMLegally authenticated by MARIA ESTHER WALDRON 2021-04-26 11:47:35Chest X-ray AP portable single [id number] 16:37:00* Test Item Value Reference Range Interpretation Comme [facility] Chest X-ray AP portable single view (test code = 93936-8) [address] [address] DIAGNOSTIC IMAGING REPORT Patient Name: VANESSA ROUSE Date of Service: 04-08-2021 Age: 20 Sex: M Order #: [id number] Room: ERS : 2000 X-Ray Number: [id number] Hospital Number: [id number] Admitting Physician: JASPREET ARNDT Ordering Physician: PHILYL BANDA - LEONOR 1 VIEW PORTABLE 04/08/2021 4:26 PM:History: SOB/SOA . Shortness of breath with chest painComparison: 04/01/2021Technique: 1 view chestFindings: The cardiomediastinal silhouette is normal. The lungs are clear without infiltrate, effusion, or pneumothorax. The bones are intact.Impression: No acute cardiopulmonary process. Electronically Signed By: Remington Ramirez M.D., 04/08/2021 4:34 PMLegally authenticated by MARIA ESTHER WALDRON 2021-04-08 16:34:39 [facility]CHEST 1 VIEW [id number] 16:37:00 [facility] Roderick : 2000 Sex: M[address] [id number] IMAGING REPORTPatient Name: VANESSA ROUSEDate of Service: 23-11-1620Nao: 20 Sex: M Order #: [id number] [facility] 2000 [facility] Number: [id number] Record Number: [id number] Hospital Number: [id number] Physician: Ashley ARNDT Physician: PHILLY BANDA -CHEST 1 VIEW PORTABLE 04/08/2021 4:26 PM:History: SOB/SOA . Shortness of breath with chest painComparison: 04/01/2021Technique: 1 view chestFindings:The cardiomediastinal silhouette is normal. The lungs are clear withoutinfiltrate, effusion, or pneumothorax. The bones are intact.Impression:No acute cardiopulmonary process.Electronically Signed By: Remington Ramirez M.D., 04/08/2021 4:34 PMLegally authenticated by MARIA ESTHER WALDRON 2021-04-08 16:34:39INFLUENZA [id number] 16:10:00* Test Item Value Reference Range Interpretation Comme nts FLU A (test code = FLU A) NEGATIVE NEGATIVE FLU B (test code = FLU B) NEGATIVE NEGATIVE FLU INTERNAL POSITIVE CNTRL (test code = FLU IPC) PASS PASS INFLUENZA LOT # (test code = FLULOT) [id number] INFLUENZA EXPIRATION DATE (t est code = FLUEXP) [id number] Influenza virus A+B Ag [Presence] in Nose by [id number] 16:10:00* Test Item Value Reference Range Interpretation Comme nts FLU INTERNAL POSITIVE CNTRL (test code = FLU IPC) PASS PASS N INFLUENZA LOT # (test code = FLULOT) [id number] 1 N INFLUENZA EXPIRATION DATE (t est code = FLUEXP) [id number] 1 N [facility] [place])Chest X-ray AP portable single [id number] 15:38:00* Test Item Value Reference Range Interpretation Comme nts Chest X-ray AP portable single view (test code = 39264-7) [address] [address] DIAGNOSTIC IMAGING REPORT Patient Name: VANESSA ROUSE Date of Service: 04-01-2021 Age: 20 Sex: M Order #: 100 Room: [facility] : 2000 X-Ray Number: [id number] Hospital Number: [id number] Admitting Physician: BEVERLY CACERES Ordering Physician: ADORE PIEDRA.04/01/2021 3:31 PMHistory: Cough and congestion.Technique: Single AP chest projection.Findings: Single chest projection demonstrates normal heart size and clear lungs. The osseous structures appear intact.Impression:No acute-appearing cardiopulmonary abnormalities.Electronical ly Signed By: Davide Padron M.D., 04/01/2021 3:36 PMLegally authenticated by CHAPARRO Lopez 2021-04-01 15:36:11 [facility] [place])CHEST 1 VIEW [id number] 15:38:00 [facility] : 2000 [facility]: [facility] [place], [place] [address]VJQTNUMLBL IMAGING REPORTPatient Name: VANESSA ROUSEDate of Service: [id number]: 20 Sex: M Order #: 100 Room: ERSDOB: 2000 X-Ray Number: [id number] Record Number: [id number] Hospital Number: [id number] Physician: BEVERLY CACERESOrdering Physician: ADORE PIEDRA.04/01/2021 3:31 PMHistory: Cough and congestion.Technique: Single AP chest projection.Findings: Single chest projection demonstrates normal heart size and clearlungs. The osseous structures appear intact.Impression:No acute-appearing cardiopulmonary abnormalities.Electronically Signed By: Davide Padron M.D., 04/01/2021 3:36 PMLegally authenticated by CHAPARRO Lopez 2021-04-01 15:36:11COVID SYMPTOMATIC ER [id number] 15:30:00* Test Item Value Reference Range Interpretation Comme nts CORONAVIRUS (COVID-19)BY PCR (test code = FAA93VFV) NEGATIVE SARS-CoV-2 (COVID-19) N gene [Presence] in [id number] 15:30:00Negative [facility] [place])SARS-CoV-2 (COVID-19) N gene [Presence] in Resp 2021-04-01 15:30:00[facility] [place])BLOOD [id number] 10:03:00* Test Item Value Reference Range Interpretation Comme nts Report Text (test code = Report Text) [facility] 2020-09-22 453 Report Text7 (test code = Report Text7) BLOOD CULTURES HELD FOR 5 DAYS BEFORE FINAL Report Text8 (test code = Report Text8) Report Text9 (test code = Report Text9) CITIZEN OF [place] [employer] SUGGESTS THAT Report Text10 (test code = Report Text10) MOST CASES OF BACTEREMIA ARE DETECTED BY USING Report Text11 (test code = Report Text11) THREE SETS OF SEPARATELY COLLECTED BLOOD CULTURES. Report Text12 (test code = Report Text12) [facility] 2020-09-22 454 Report Text13 (test code = [...] Report Text18 (test code = Report Text18) [facility] 2020-09-22 455 Report Text19 (test code = Report Text19) COLLECTION SITE UNSPECIFIED Report Text20 (test code = Report Text20) [facility] 2020-09-22 1414 Report Text21 (test code = Report Text21) NO GROWTH WITHIN 1 DAY Report Text22 (test code = Report Text22) PRELIMINARY REPORT Report Text23 (test code = Report Text23) Report Text24 (test code = Report Text24) [facility] 2020-09-23 647 Report Text25 (test code = Report Text25) NO GROWTH WITHIN 2 DAYS Report Text26 (test code = Report Text26) PRELIMINARY REPORT Report Text27 (test code = Report Text27) Report Text28 (test code = Report Text28) [facility] 2020-09-26 1003 Report Text29 (test code = Report Text29) NO GROWTH WITHIN 5 DAYS Report Text30 (test code = Report Text30) FINAL REPORT NEG STREP SCRN CONFIRM [id number] 08:11:00* Test Item Value Reference Range Interpretation Comme nts Report Text (test code = Report Text) [facility] 2020-09-22 1138 Report Text7 (test code = Report Text7) NORMAL RESPIRATORY NIYA ISOLATED Report Text8 (test code = Report Text8) PRELIMINARY REPORT Report Text9 (test code = Report Text9) Report Text10 (test code = Report Text10) [facility] 2020-09-23 811 Report Text11 (test code = Report Text11) STREP SCREEN NEGATIVE, CULTURE NEGATIVE FOR Report Text12 (test code = Report Text12) GROUP A STREP - FINAL REPORT. CHEST XR 2 [id number] 07:09:00 [facility] Roderick : 2000 Sex: [facility] [place] [id number] IMAGING REPORTPatient Name: VANESSA ROUSEDate of Service: [id number]: 19 Sex: M Order #: [id number] Room: ERSDOB: 2000 X-Ray Number: [id number] Record Number: [id number] Hospital Number: [id number] Physician: HARJEET VELA -Ordering Physician: ADELAIDE RODRIGES XR 2 VIEWS 09/21/2020 10:14 PMHistory: Cough with feverComparisons: None Available.CHEST:FINDINGS:Heart size is normal.There is no focal lung consolidation.There is no definite pleural effusion or pneumothorax identified.IMPRESSION:No acute cardiopulmonary process.EMERGENT INTERPRETATION PROVIDED BY [facility].Electronically Signed By: Juan Lara M.D., 09/22/2020 7:06 AMLegally authenticated by NOEL SHERMAN 2020-09-22 07:06:58INFLUENZA [id number] 00:08:00 * Test Item Value Reference Range Interpretation Comme nts FLU A (test code = FLU A) NEGATIVE NEGATIVE FLU B (test code = FLU B) NEGATIVE NEGATIVE FLU INTERNAL POSITIVE CNTRL (test code = FLU IPC) PASS PASS INFLUENZA LOT # (test code = FLULOT) [id number] INFLUENZA EXPIRATION DATE (t est code = FLUEXP) 10-18-2022 COVID SYMPTOMATIC ER [id number] 00:00:00* Test Item Value Reference Range Interpretation Comme nts CORONAVIRUS (COVID-19)BY PCR (test code = [id number]) POSITIVE BMP, BASIC METABOLIC [id number] 23:37:00* Test Item Value Reference Range Interpretation [...] H Fasting glucos e normal <100 MG/DL- [employer] recommendation CALCIUM (test code = CABLOOD) 9.5 MG/DL 8.4-10.2 GFR (test code = GFR) 101 mL/min/1.73m2 A GFR of >90 mL/min/1.73m2 is considered normal. The GFR calculation on patients over 70 years of age is not validated by the customer care associate and may not represent the patients true renal function. GROUP A STREP [id number] 23:21:00* Test Item Value Reference Range Interpretation Comme nts GROUP A STREP SCREEN (test code = STREPGRA) NEGATIVE NEGATIVE Culture set up to confirm negative Strep Screen STREP A INTERNAL POS CNTRL (test code = STRPAIPC) PASS PASS STREP A LOT # (test code = STRPALOT) [id number] STREP A EXPIRATION DATE (test code = STRPAEXP) Culture set up to confirm negative Strep [id number] 23:14:00* Test Item Value Reference Range Interpretation [...] NEUT) 3.8 K/UL 1.2-7.2 US EXTREMITY NON-VAS [id number] 15:32:[address] [address]GSASPLUNMU IMAGING REPORTPatient Name: VANESSA ROUSE of Service: [id number]: 18 Sex: M Order #: 100 Room: OPEDOB: 2000 X-Ray Number: [id number] Record Number: [id number] Hospital Number: [id number] Physician: STEFANO POWELLing Physician: STEFANO POWELL extremity nonvascular ultrasound.History: Complaining [...]
[2024-05-21] MEDS ORDERED: LIDOCAINE 2% W/EPI 1:200,000 MPF 20 ML VIAL IM ONE (11:02)
--- NOTE | 2024-05-21 11:26 | ER ---
Nurse's Notes [facility] Name: Henri Correa Age: 23 yrs Sex: Male : 2000 Arrival Date: 05/21/2024 Time: 10:41 Bed 19 [facility] MD: Diagnosis: Pilonidal cyst with abscess Presentation: 05/21 10:45 Chief complaint: Patient states: COMPLAINS OF BUMP ON BUTTOCKS X 1 WEEK THAT IS GETTING db WORSE. PAIN WITH SITTING AND PAIN WITH AMBULATION. Coronavirus screen: Client denies travel out of the [place] in the last 14 days. At this time, the client does not indicate any symptoms associated with coronavirus-19. Ebola Screen: Patient negative for fever greater than or equal to 101.5 degrees Fahrenheit, and additional compatible Ebola Virus Disease symptoms Patient denies exposure to infectious person. Patient denies travel to an Ebola-affected area in the 21 days before illness onset. No symptoms or risks identified at this time. Initial Sepsis Screen: Does the patient meet any 2 criteria? No. Patient's initial sepsis screen is negative. Does the patient have a suspected source of infection? No. Patient's initial sepsis screen is negative. Risk Assessment: Do you want to hurt yourself or someone else? Patient reports no desire to harm self or others. Onset of symptoms was May 14, 2024. 10:45 Method Of Arrival: Ambulatory db 10:45 Acuity: JESSICA 3 db Triage Assessment: 10:55 General: Appears in no apparent distress. uncomfortable, Behavior is calm, cooperative. db Pain: Complains of pain in buttocks. Derm: Abscess located on buttocks Reports pain. Historical: - Allergies: 10:55 No Known Allergies; db - Home Meds: 10:55 None [Active]; db - PMHx: 10:55 None; db - PSHx: 10:55 None; db - Immunization history:: Adult Immunizations unknown. - Infectious Disease History:: Denies. - Social history:: Smoking status: Reported history of juuling and/or vaping. Screenin:51 [facility] ED Fall Risk Assessment (Adult) History of falling in the last 3 months, bp including since admission No falls in past 3 months (0 pts) Confusion or Disorientation No (0 pts) Intoxicated or Sedated No (0 pts) Impaired Gait No (0 pts) Mobility Assist Device Used No (0 pt) Altered Elimination No (0 pt) Score/Fall Risk Level 0 - 2 = Low Risk Oriented to surroundings. Abuse screen: Denies threats or abuse. Denies injuries from another. Nutritional screening: No deficits noted. Tuberculosis screening: No symptoms or risk factors identified. Vital Signs: 10:45 BP 134 / 92; Pulse 106; Resp 16; Temp 98.2; Pulse Ox 99% ; Weight 68.04 kg; Height 5 db ft. 5 in. ; 10:45 Body Mass Index 24.96 (68.04 kg, 165.1 cm) db ED Course: 10:43 Patient arrived in ED. ra3 10:49 Tristen Ac MD is Attending Physician. ec2 10:55 Triage completed. db 10:57 Arm band placed on Patient placed in an exam room. db 11:26 Mckay Mccoy MD is Referral Physician. ec2 11:41 Saturnino Mendez RN is Primary Nurse. bp 11:51 Patient has correct armband on for positive identification. bp 11:51 Assist provider with I \T\ D: of an abscess on pilonidal cyst. Wound care: to PILONIDAL bp CYST located on buttocks was dressed with 4X4s, Patient tolerated well. Administered Medications: 11:03 Drug: Lidocaine-Epinephrine Infiltration -1%: (1:100,000) 10 ml 20 ml Infiltration db once; to bedside {Note: GIVEN TO DR. AC FOR ADMINISTRATION.} Volume: 20 ml; Route: Infiltration; Outcome: 11:26 Discharge ordered by . ec2 11:52 Discharged to home ambulatory, bp 11:52 Condition: stable 11:52 Discharge instructions given to patient, Instructed on discharge instructions, follow up and referral plans. wound care, Demonstrated understanding of instructions, follow-up care, wound care, 11:52 Patient left the ED. bp Signatures: Saturnino Mendez RN RN Nery Hare RN RN Tristen Ac MD MD 2 Akila Paeg ra3
--- NOTE | 2024-05-21 11:26 | EDPHYS ---
Physician Documentation [facility] Name: Henri Correa Age: 23 yrs Sex: Male : 2000 Arrival Date: 05/21/2024 Time: 10:41 Bed 19 Private MD: ED Physician Tristen Ac HPI: 05/21 10:58 This 23 yrs old Black Male presents to ER via Ambulatory with complaints of Abscess - ec2 on Buttocks. 10:58 Patient arrives today for evaluation of swelling to the crease of the buttocks. No ec2 fevers or chills, no nausea or vomiting, no previous history of pilonidal abscess.. Historical: - Allergies: 10:55 No Known Allergies; db - Home Meds: 10:55 None [Active]; db - PMHx: 10:55 None; db - PSHx: 10:55 None; db - Immunization history:: Adult Immunizations unknown. - Infectious Disease History:: Denies. - Social history:: Smoking status: Reported history of juuling and/or vaping. ROS: 10:58 Constitutional: as per hpi ec2 Exam: 10:58 Constitutional: GEN: NAD Head: atraumatic Eyes: EOMI Ears: External ears are ec2 normal. CV: regular rate LUNGS: no respiratory distress ABD: non-distended. : Pilonidal abscess appreciated, no surrounding erythema or warmth appreciated. SKIN: no evidence of rashes MSK: no evidence of trauma Vital Signs: 10:45 BP 134 / 92; Pulse 106; Resp 16; Temp 98.2; Pulse Ox 99% ; Weight 68.04 kg; Height 5 db ft. 5 in. ; 10:45 Body Mass Index 24.96 (68.04 kg, 165.1 cm) db Procedures: 11:25 I \T\ D: Incision and drainage was performed for an abscess of the pilonidal cyst Prepped ec2 with Betadine, Anesthetized with 7 ml's 1% Lidocaine w/ Epi. Incised with #11 blade. Drained large amount Dressing: sterile 4x4 gauze, the patient tolerated the procedure well. MDM: 10:50 Medical Screening Exam initiated ec2 10:58 Data reviewed: vital signs, nurses notes. ED course: Patient arrives today for ec2 evaluation of swelling to the buttock area. Examination revealing for findings as above. Will perform incision and drainage. Presentation consistent with pilonidal abscess. Additionally considered cellulitis, additionally considered rectal abscess.. 11:26 ED course: I performed incision and drainage with large amount of pus drained. Will ec2 discharge home. Return precautions given.. 05/21 11:26 Order name: Wound Care: gauze and tape; Complete Time: 11:51 ec2 Administered Medications: 11:03 Drug: Lidocaine-Epinephrine Infiltration -1%: (1:100,000) 10 ml 20 ml Infiltration db once; to bedside {Note: GIVEN TO DR. AC FOR ADMINISTRATION.} Volume: 20 ml; Route: Infiltration; Disposition Summary: 05/21/24 11:26 Discharge Ordered Condition: Stable ec2 Diagnosis - Pilonidal cyst with abscess ec2 Followup: ec2 - With: Mckay Mccoy MD - When: - Reason: Recheck today's complaints Discharge Instructions: - Discharge Summary Sheet ec2 - Pilonidal Cyst Drainage, Care After ec2 Forms: - Work release form ec2 - Medication Reconciliation Form ec2 - Antibiotic Education ec2 - Prescription Opioid Use ec2 - Patient Portal Instructions ec2 - Leadership Thank You Letter ec2 Signatures: Nery Sin RN RN Tristen Pascual MD MD ec2
[2024-05-21 12:04] VITALS: BP 134/92; TEMP 98.2; O2SAT 99
== END 2024-05-21 11:52 | disposition home or self-care (01) ==
LOC: ER 10:41
PROC: 0J990ZZ Drainage of Buttock Subcutaneous Tissue and Fascia, Open Approach (ICD-10-PCS; principal; 2024-05-21)
DX: L05.01 Pilonidal cyst with abscess (principal); F17.290 Nicotine dependence, other tobacco product, uncomplicated
CPT/HCPCS: 10060; 99284

== ENCOUNTER 2024-05-31 09:44 | Emergency (ER) | payer BC ==
--- OUTSIDE RECORDS SUMMARY | 2024-05-31 09:46 | XMS REPORT | Continuity of Care Document ---
Author Name Unknown Address [address] [facility] [place] [address] [facility] thconnect Address [address] [place] [address] Care Team Providers Care Cream Dipper Name Role Phone NO, PCP Primary Care Physician Unavailab aDron Irizarry Attending Clinician Unavailable Eduard Aguiar Attending [...] Date Expirati on Date Source 2 C [id number] Allergies, Adverse Reactions, Alerts Allergy Name Allergy Type Status Severity Reaction(s) Onset Date Inactive Date Treating Clinician Comments Source No Known Allergie s DA Active U 06-25 00:00: 00 [facility] No known drug Allergie s Miscella neous Allergy Active U Not Specified 2020-06 15:30: 25 [facility] No known drug Allergie s Miscella neous Allergy Active U Not Specified 2020-06 15:30: 25 [facility] ([facility]) No known drug Allergie s Miscella neous Allergy Active U Not Specified 2020-06 15:30: 25 [facility] ([facility]) No known drug Allergie s Miscella neous Allergy Active U Not Specified 2020-06 15:30: 25 [facility] ([facility]) No known drug Allergie s Miscella neous Allergy Active U Not Specified 2020-06 15:30: 25 [facility] ([facility]) No known drug Allergie s Miscella neous Allergy Active U Not Specified 2020-06 15:30: 25 [facility] ([facility]) No known drug Allergie s Miscella neous Allergy Active U Not Specified 2020-06 15:30: 25 [facility] ([facility]) No known drug Allergie s Miscella neous Allergy Active U Not Specified 2020-06 15:30: 25 [facility] ([facility]) No known drug Allergie s Miscella neous Allergy Active U Not Specified 2020-06 15:30: 25 [facility] ([facility]) No Known Allergie s NA Active 2020-06 15:30: 19 [facility] ([facility]) No Known Allergie s NA Active 2020-06 15:22: 28 [facility] ([facility]) No Known Allergie s NA Active 2020-06 10:25: 33 [facility] ([facility]) No Known Allergie s NA Active 2020-06 16:48: 01 [facility] ([facility]) No Known Allergie s NA Active 2020-06 15:17: 04 [facility] ([facility]) No Known Allergie s NA Active 2020-06 15:07: 30 [facility] ([facility]) No Known Allergie s NA Active 10-26 12:40: 47 [facility] ([facility]) No Known Allergie s NA Active 09-30 08:53: 23 [facility] ([facility]) No Known Allergie s NA Active 09-23 10:56: 06 [facility] No Known Allergie s NA Active 09-22 01:11: 02 [facility] ([facility]) No Known Allergie s NA Active 09-21 21:45: 20 [facility] ([facility]) No Known Allergie s NA Active 09-21 21:13: 14 [facility] Encounters Start Date/Time End Date/Time Encounter Type Admission Type Attending [facility] Facility Care Department Encounter ID Source 2023-10-26 19:33:00 2023-10-26 20:19:00 [facility] [id number] 28 [facility] 2023-06-25 11:28:00 2023-06-25 12:39:00 Emergency EM [facility] [id number] 92 [facility] 2021-04-26 16:36:00 2021-04-26 19:23:00 [facility] [id number] 2021-04-26 10:36:00 2021-04-26 13:23:00 Outpatient Encounter 1 JASPREET ARNDT [facility] [id number] [facility] 2021-04-08 20:22:00 2021-04-08 22:15:00 [facility] Department [facility] [id number] 2021-04-08 15:22:00 2021-04-08 17:15:00 Outpatient Encounter JASPREET ARNDT [facility] [id number] [facility] ([facility]) 2021-04-01 20:07:00 2021-04-01 21:47:00 Emergency Department [facility] [id number] 2021-04-01 15:07:00 2021-04-01 16:47:00 Outpatient Encounter BEVERLY CACERES [facility] [id number] [facility] ([facility]) 2020-09-22 07:09:35 2020-09-22 07:09:35 Emergency HARJEET VELA [facility] [id number] [facility] ([facility]) Results Test Description Test Time Test Comments Results Result Co mments Source INFLUENZA [id number] 12:29:00* Test Item Value Reference Range Interpretation Comme nts FLU A (test code = FLU A) NEGATIVE NEGATIVE FLU B (test code = FLU B) NEGATIVE NEGATIVE FLU INTERNAL POSITIVE CNTRL (test code = FLU IPC) PASS PASS INFLUENZA LOT # (test code = FLULOT) [id number] INFLUENZA EXPIRATION DATE (t est code = FLUEXP) 09-23 Influenza virus A+B Ag [Presence] in Nose by [id number] 12:29:00* Test Item Value Reference Range Interpretation Comme nts FLU INTERNAL POSITIVE CNTRL (test code = FLU IPC) PASS PASS N INFLUENZA LOT # (test code = FLULOT) [id number] 1 N INFLUENZA EXPIRATION DATE (t est code = FLUEXP) 09-23 N [facility])COVID SYMPTOMATIC ER [id number] 12:05:00* Test Item Value Reference Range Interpretation Comme nts CORONAVIRUS (COVID-19)BY PCR (test code = ZJD10LRT) NEGATIVE SARS-CoV-2 (COVID-19) N gene [Presence] in [id number] 12:05:00Negative [facility])SARS-CoV-2 (COVID-19) N gene [Presence] in Resp 2021-04-26 12:[facility]TROPONIN [id number] 11:55:00* Test Item Value Reference Range Interpretation Comme nts TROPER (test code = TROPER) 0.00 NG/ML 0.0-0.08 INTERPRETIVE DATA A POC TROPONIN OF </= 0.08 NG/ML IS CONSIDERED NEGATIVE Troponin T.cardiac [Mass/volume] in [id number] 11:55:00* Test Item Value Reference Range Interpretation Comme nts Troponin T.cardiac [Mass/vol ume] in Blood (test code = 61701-3) 0.0 NG/ML 0.0-0.08 N [facility])Ribs - bilateral and Chest X-ray 2 views and PA 2021-04-26 11:50:00* Test Item Value Reference Range Interpretation Comme nts Ribs - bilateral and Chest X-ray 2 views and PA chest (test code = 08224-0) [address] [address] DIAGNOSTIC IMAGING REPORT Patient Name: VANESSA ROUSE Date of Service: 04-26-2021 Age: 20 Sex: M Order #: 100 Room: [facility] : 2000 X-Ray Number: [id number] Hospital Number: [id number] Admitting Physician: JASPREET ARNDT Ordering Physician: JORGE [...] authenticated by MARIA ESTHER WALDRON 2021-04-26 11:47:35 [facility])CHEST XR 2 [id number] 11:50:00 [facility] Vaughn : 2000 Sex: M[address] [id number] IMAGING REPORTPatient Name: VANESSA ROUSEDate of Service: [id number]: 20 Sex: M Order #: 100 Room: ERSDOB: 2000 X-Ray Number: [id number] Record Number: [id number] Hospital Number: [id number] Physician: Dany ARNDTering Physician: JORGE RODRIGES -LEONOR XR 2 VIEWS 04/26/2021 11:29 AM:History: Cough without fever . Chest wall pain.Comparison: 04/08/2021Technique: 2 view chestFindings:The cardiomediastinal silhouette is normal. The lungs are clear withoutinfiltrate, effusion, or pneumothorax. The bones are intact.Impression:No acute cardiopulmonary process.Electronically Si gned By: Remington Ramirez M.D., 04/26/2021 11:47 AMLegally authenticated by MARIA ESTHER WALDRON 2021-04-26 11:47:35Chest X-ray AP portable single [id number] 16:37:00* Test Item Value Reference Range Interpretation Comme [facility] Chest X-ray AP portable single view (test code = 23336-4) [address] [address] DIAGNOSTIC IMAGING REPORT Patient Name: VANESSA ROUSE Date of Service: 04-08-2021 Age: 20 Sex: M Order #: [id number] Room: ERS : 2000 X-Ray Number: [id number] Hospital Number: [id number] Admitting Physician: JASPREET ARNDT Ordering Physician: PHILLY [...] authenticated by MARIA ESTHER WALDRON 2021-04-08 16:34:39 [facility]CHEST 1 VIEW [id number] 16:37:00 [facility] Roderick : 2000 Sex: M[address] [id number] IMAGING REPORTPatient Name: VANESSA ROUSEDate of Service: [id number]: 20 Sex: M Order #: [id number] [facility] 2000 [facility] Number: [id number] Record Number: [id number] Hospital Number: [id number] Physician: Ashley ARNDT Physician: PHILLY BANDA -CHEST 1 VIEW PORTABLE 04/08/2021 4:26 PM:History: SOB/SOA . Shortness of breath with chest painComparison: 04/01/2021Technique: 1 view chestFindings:The cardiomediastinal silhouette is normal. The lungs are clear withoutinfiltrate, effusion, or pneumothorax. The bones are intact.Impression:No acute cardiopulmonary process.Electronically Signed By: Remington Ramirez M.D., 04/08/2021 4:34 PMLegally authenticated by MARIA ESTHER WALDRON 2021-04-08 16:34:39INFLUENZA [id number] 16:10:00* Test Item Value Reference Range Interpretation Comme nts FLU A (test code = FLU A) NEGATIVE NEGATIVE FLU B (test code = FLU B) NEGATIVE NEGATIVE FLU INTERNAL POSITIVE CNTRL (test code = FLU IPC) PASS PASS INFLUENZA LOT # (test code = FLULOT) [id number] INFLUENZA EXPIRATION DATE (t est code = FLUEXP) [id number] Influenza virus A+B Ag [Presence] in Nose by [id number] 16:10:00* Test Item Value Reference Range Interpretation Comme nts FLU INTERNAL POSITIVE CNTRL (test code = FLU IPC) PASS PASS N INFLUENZA LOT # (test code = FLULOT) [id number] 1 N INFLUENZA EXPIRATION DATE (t est code = FLUEXP) [id number] 1 N [facility])Chest X-ray AP portable single [id number] 15:38:00* Test Item Value Reference Range Interpretation Comme nts Chest X-ray AP portable single view (test code = 00306-4) [address] [address] DIAGNOSTIC IMAGING REPORT Patient Name: VANESSA ROUSE Date of Service: 04-01-2021 Age: 20 Sex: M Order #: 100 Room: [facility] : 2000 X-Ray Number: [id number] Hospital Number: [id number] Admitting Physician: BEVERLY CACERES Ordering Physician: ADORE PIEDRA.04/01/2021 3:31 PMHistory: Cough and congestion.Technique: Single AP chest projection.Findings: Single chest projection demonstrates normal heart size and clear lungs. The osseous structures appear intact.Impression:No acute-appearing cardiopulmonary abnormalities.Electronical ly Signed By: Davide Padron M.D., 04/01/2021 3:36 PMLegally authenticated by CHAPARRO Lopez 2021-04-01 15:36:11 [facility])CHEST 1 VIEW [id number] 15:38:00 [facility] : 2000 Sex: [facility] [place], [place] [address]ZFFMTJUMDG IMAGING REPORTPatient Name: VANESSA ROUSEDate of Service: [id number]: 20 Sex: M Order #: 100 Room: ERSDOB: 2000 X-Ray Number: [id number] Record Number: [id number] Hospital Number: [id number] Physician: BEVERLY CACERESOrdering Physician: ADORE PIEDRA.04/01/2021 3:31 PMHistory: Cough and congestion.Technique: Single AP chest projection.Findings: Single chest projection demonstrates normal heart size and clearlungs. The osseous structures appear intact.Impression:No acute-appearing cardiopulmonary abnormalities.Electronically Signed By: Davide Padron M.D., 04/01/2021 3:36 PMLegally authenticated by CHAPARRO Lopez 2021-04-01 15:36:11COVID SYMPTOMATIC ER [id number] 15:30:00* Test Item Value Reference Range Interpretation Comme nts CORONAVIRUS (COVID-19)BY PCR (test code = HEA37YTI) NEGATIVE SARS-CoV-2 (COVID-19) N gene [Presence] in [id number] 15:30:00Negative [facility])SARS-CoV-2 (COVID-19) N gene [Presence] in Resp 2021-04-01 15:30:00[facility]BLOOD [id number] 10:03:00* Test Item Value Reference Range Interpretation Comme nts Report Text (test code = Report Text) [facility] 2020-09-22 453 Report Text7 (test code = Report Text7) BLOOD CULTURES HELD FOR 5 DAYS BEFORE FINAL Report Text8 (test code = Report Text8) Report Text9 (test code = Report Text9) [employer] SUGGESTS THAT Report Text10 (test code = Report Text10) MOST CASES OF BACTEREMIA ARE DETECTED BY USING Report Text11 (test code = Report Text11) THREE SETS OF SEPARATELY COLLECTED BLOOD CULTURES. Report Text12 (test code = Report Text12) [facility] 2020-09-22 454 Report Text13 (test code = [...] Report Text18 (test code = Report Text18) [facility] 2020-09-22 455 Report Text19 (test code = Report Text19) COLLECTION SITE UNSPECIFIED Report Text20 (test code = Report Text20) [facility] 2020-09-22 1414 Report Text21 (test code = Report Text21) NO GROWTH WITHIN 1 DAY Report Text22 (test code = Report Text22) PRELIMINARY REPORT Report Text23 (test code = Report Text23) Report Text24 (test code = Report Text24) [facility] 2020-09-23 647 Report Text25 (test code = Report Text25) NO GROWTH WITHIN 2 DAYS Report Text26 (test code = Report Text26) PRELIMINARY REPORT Report Text27 (test code = Report Text27) Report Text28 (test code = Report Text28) [facility] 2020-09-26 1003 Report Text29 (test code = Report Text29) NO GROWTH WITHIN 5 DAYS Report Text30 (test code = Report Text30) FINAL REPORT NEG STREP SCRN CONFIRM [id number] 08:11:00* Test Item Value Reference Range Interpretation Comme nts Report Text (test code = Report Text) [facility] 2020-09-22 1138 Report Text7 (test code = Report Text7) NORMAL RESPIRATORY NIYA ISOLATED Report Text8 (test code = Report Text8) PRELIMINARY REPORT Report Text9 (test code = Report Text9) Report Text10 (test code = Report Text10) [facility] 2020-09-23 811 Report Text11 (test code = Report Text11) STREP SCREEN NEGATIVE, CULTURE NEGATIVE FOR Report Text12 (test code = Report Text12) GROUP A STREP - FINAL REPORT. CHEST XR 2 [id number] 07:09:00 [facility] [place]oder[place] : 2000 Sex: [facility] [place] [id number] IMAGING REPORTPatient Name: VANESSA ROUSEDate of Service: [id number]: 19 Sex: M Order #: [id number] Room: ERSDOB: 2000 X-Ray Number: [id number] Record Number: [id number] Hospital Number: [id number] Physician: HARJEET VELA -Ordering Physician: ADELAIDE RODRIGES XR 2 VIEWS 09/21/2020 10:14 PMHistory: Cough with feverComparisons: None Available.CHEST:FINDINGS:Heart size is normal.There is no focal lung consolidation.There is no definite pleural effusion or pneumothorax identified.IMPRESSION:No acute cardiopulmonary process.EMERGENT INTERPRETATION PROVIDED BY [facility].Electronically Signed By: Juan Lara M.D., 09/22/2020 7:06 AMLegally authenticated by NOEL SHERMAN 2020-09-22 07:06:58INFLUENZA [id number] 00:08:00 * Test Item Value Reference Range Interpretation Comme nts FLU A (test code = FLU A) NEGATIVE NEGATIVE FLU B (test code = FLU B) NEGATIVE NEGATIVE FLU INTERNAL POSITIVE CNTRL (test code = FLU IPC) PASS PASS INFLUENZA LOT # (test code = FLULOT) [id number] INFLUENZA EXPIRATION DATE (t est code = FLUEXP) 10-18-2022 COVID SYMPTOMATIC ER [id number] 00:00:00* Test Item Value Reference Range Interpretation Comme nts CORONAVIRUS (COVID-19)BY PCR (test code = CQR75JQO) POSITIVE BMP, BASIC METABOLIC [id number] 23:37:00* Test Item Value Reference Range Interpretation [...] H Fasting glucos e normal <100 MG/DL- [employer] recommendation CALCIUM (test code = CABLOOD) 9.5 MG/DL 8.4-10.2 GFR (test code = GFR) 101 mL/min/1.73m2 A GFR of >90 mL/min/1.73m2 is considered normal. The GFR calculation on patients over 70 years of age is not validated by the entertainment dancer and may not represent the patients true renal function. GROUP A STREP [id number] 23:21:00* Test Item Value Reference Range Interpretation Comme nts GROUP A STREP SCREEN (test code = STREPGRA) NEGATIVE NEGATIVE Culture set up to confirm negative Strep Screen STREP A INTERNAL POS CNTRL (test code = STRPAIPC) PASS PASS STREP A LOT # (test code = STRPALOT) [id number] STREP A EXPIRATION DATE (test code = STRPAEXP) Culture set up to confirm negative Strep [id number] 23:14:00* Test Item Value Reference Range Interpretation [...] NEUT) 3.8 K/UL 1.2-7.2 US EXTREMITY NON-VAS [id number] 15:32:[address] [address]ZIZTGVLMCY IMAGING REPORTPatient Name: VANESSA ROUSE of Service: [id number]: 18 Sex: M Order #: 100 Room: OPEDOB: 2000 X-Ray Number: [id number] Record Number: [id number] Hospital Number: [id number] Physician: STEFANO POWELLing Physician: STEFANO POWELL extremity [...]
--- NOTE | 2024-05-31 10:49 | EDPHYS ---
Physician Documentation [facility] Name: Henri Correa Age: 23 yrs Sex: Male : 2000 Arrival Date: 05/31/2024 Time: 09:44 Bed 12 Private MD: ED Physician Florentin Swann HPI: 05/31 10:53 This 23 yrs old Black Male presents to ER via Ambulatory with complaints of Cyst - low sb4 back. 10:53 The patient presents with an abscess of the gluteal cleft. Description: draining, sb4 swollen, tense, warm. Onset: The symptoms/episode began/occurred 10 day(s) ago. Possible cause(s): unknown. Associated signs and symptoms: Pertinent positives: drainage, swelling, Pertinent negatives: fever. 10:53 Pilonidal abscess I\T\D here 10 days ago. Discharged to follow-up with general surgery. sb4 Has not followed up, states the pain has persisted and the abscess is still draining. Historical: - Allergies: 10:17 No Known Allergies; tm6 - PMHx: 10:17 None; tm6 - PSHx: 10:17 None; tm6 - Immunization history:: Flu vaccine is not up to date. - Infectious Disease History:: Denies. - Social history:: Smoking status: Reported history of juuling and/or vaping. ROS: 10:53 Constitutional: Negative for fever, chills, and weight loss, sb4 10:53 Skin: Positive for abscess, of the gluteal cleft, 10:53 All other systems are negative, Exam: 10:53 Head/Face: Normocephalic, atraumatic. Eyes: Extra-ocular motions intact. Periorbital sb4 areas with no swelling, redness, or edema. ENT: Mucous membranes moist. Respiratory: No increased work of breathing, no retractions or nasal flaring. 10:53 Constitutional: The patient appears alert, awake, uncomfortable, 10:53 Skin: abscess, that is small, of the gluteal cleft, with drainage, that is purulent, Vital Signs: 10:16 BP 134 / 91; Pulse 86; Resp 16; Temp 98.4; Pulse Ox 99% on R/A; MAP 103 mmHg; Weight tm6 68.04 kg; Height 5 ft. 5 in. ; Pain 8/10; 10:16 Body Mass Index 24.96 (68.04 kg, 165.1 cm) tm6 10:16 Pain Scale: Adult tm6 MDM: 10:22 Medical Screening Exam initiated sb4 10:55 Data reviewed: vital signs, nurses notes, and as a result, I will discharge patient. sb4 Counseling: I had a detailed discussion with the patient and/or guardian regarding the historical points, exam findings, and any diagnostic results supporting the discharge/admit diagnosis, the need for outpatient follow up, a general surgeon, to return to the emergency department if symptoms worsen or persist or if there are any questions or concerns that arise at home. Administered Medications: 11:07 Drug: Hydrocodone-Acetaminophen PO (7.5 mg-325 mg) 1 tabs PO once Route: PO; ss 11:08 Follow up: Response: Medication administered at discharge. ss 11:07 Drug: Cephalexin PO 500 mg PO once Route: PO; ss 11:07 Follow up: Response: Medication Administered at Departure ss 11:07 Drug: metroNIDAZOLE PO 500 mg PO once Route: PO; 11:07 Follow up: Response: Medication Administered at Departure Disposition: 11:57 Co-signature as Attending Physician, Florentin Swann MD I reviewed the patient's care rn provided by the Advanced Practice Provider and agree with the diagnosis and treatment plan. Disposition Summary: 05/31/24 10:48 Discharge Ordered Notes: Location: Home sb4 Problem: an ongoing problem sb4 Symptoms: are unchanged sb4 Condition: Stable sb4 Diagnosis - Pilonidal cyst with abscess sb4 Followup: sb4 - With: Monico Beal MD - When: 2 - 3 days - Reason: Recheck today's complaints, Re-evaluation by your physician Followup: sb4 - With: Freddy Sears MD - When: 2 - 3 days - Reason: Recheck today's complaints, Re-evaluation by your physician Followup: sb4 - With: Mckay Mccoy MD - When: 2 - 3 days - Reason: Recheck today's complaints, Re-evaluation by your physician Followup: sb4 - With: Renaot Miller MD - When: 2 - 3 days - Reason: Recheck today's complaints, Re-evaluation by your physician Discharge Instructions: - Discharge Summary Sheet sb4 - Pilonidal Cyst Removal sb4 Forms: - Medication Reconciliation Form sb4 - Antibiotic Education sb4 - Prescription Opioid Use sb4 - Patient Portal Instructions sb4 - Leadership Thank You Letter sb4 Prescriptions: - Cephalexin 500 mg Oral Capsule - take 1 capsule ORAL route every 8 hours for 10 days; 30 capsule; Refills: 0, sb4 Product Selection Permitted - Flagyl 500 mg Oral Tablet - take 1 tablet ORAL route every 12 hours for 7 days; 14 tablet; Refills: 0, sb4 Product Selection Permitted - Tramadol 50 mg Oral Tablet - take 1 tablet ORAL route every 8 hours as needed; 12 tablet; Refills: 0, sb4 Product Selection Permitted Signatures: Florentin Swann MD MD rn Blanchard, Shelby, RN RN ss Brown, Sophia, PA-C PA-C sb4 Angel Apple RN RN tm6
--- NOTE | 2024-05-31 10:49 | ER ---
Nurse's Notes [facility] Name: Henri Correa Age: 23 yrs Sex: Male : 2000 Arrival Date: 05/31/2024 Time: 09:44 Bed 12 Private MD: Diagnosis: Pilonidal cyst with abscess Presentation: 05/31 10:18 Chief complaint: Patient states: cyst on lower back came about 2-3 weeks ago. Causing tm6 pain, difficult to sit and walk. Coronavirus screen: Client denies travel out of the [place] in the last 14 days. Ebola Screen: Patient negative for fever greater than or equal to 101.5 degrees Fahrenheit, and additional compatible Ebola Virus Disease symptoms Patient denies exposure to infectious person. Patient denies travel to an Ebola-affected area in the 21 days before illness onset. No symptoms or risks identified at this time. Initial Sepsis Screen: Does the patient meet any 2 criteria? No. Patient's initial sepsis screen is negative. Does the patient have a suspected source of infection? No. Patient's initial sepsis screen is negative. Risk Assessment: Do you want to hurt yourself or someone else? Patient reports no desire to harm self or others. Onset of symptoms was May 10, 2024. 10:18 Method Of Arrival: Ambulatory tm6 10:18 Acuity: JESSICA 3 tm6 Triage Assessment: 10:18 General: Appears uncomfortable, Behavior is calm, cooperative. Pain: Complains of pain tm6 in back Pain currently is 8 out of 10 on a pain scale. EENT: No signs and/or symptoms were reported regarding the EENT system. Neuro: Level of Consciousness is awake, alert, obeys commands, Oriented to person, place, time, situation. Cardiovascular: Patient's skin is warm and dry. Respiratory: Airway is patent Respiratory effort is even, unlabored, Respiratory pattern is regular, symmetrical. GI: No signs and/or symptoms were reported involving the gastrointestinal system. Abdomen is flat, non-distended. : No signs and/or symptoms were reported regarding the genitourinary system. Derm: Abscess located on back. Musculoskeletal: No signs and/or symptoms reported regarding the musculoskeletal system. Historical: - Allergies: 10:17 No Known Allergies; tm6 - PMHx: 10:17 None; tm6 - PSHx: 10:17 None; tm6 - Immunization history:: Flu vaccine is not up to date. - Infectious Disease History:: Denies. - Social history:: Smoking status: Reported history of juuling and/or vaping. Screenin:08 Abuse screen: Denies threats or abuse. Denies injuries from another. Nutritional ss screening: No deficits noted. Tuberculosis screening: Never had TB. Assessment: 11:08 General: Appears uncomfortable, Behavior is calm, cooperative. Pain: Complains of pain ss in gluteal cleft Pain currently is 8 out of 10 on a pain scale. Quality of pain is described as tender, Is continuous. Neuro: Level of Consciousness is awake, alert, obeys commands, Oriented to person, place, time, situation. Respiratory: Airway is patent Respiratory effort is even, unlabored, Respiratory pattern is regular, symmetrical. Derm: Abscess located on pilonidal cyst. Vital Signs: 10:16 BP 134 / 91; Pulse 86; Resp 16; Temp 98.4; Pulse Ox 99% on R/A; MAP 103 mmHg; Weight tm6 68.04 kg; Height 5 ft. 5 in. ; Pain 8/10; 10:16 Body Mass Index 24.96 (68.04 kg, 165.1 cm) tm6 10:16 Pain Scale: Adult tm6 ED Course: 09:46 Patient arrived in ED. im 09:49 Tami Vega PA-C is PHCP. sb4 09:49 Florentin Swann MD is Attending Physician. sb4 10:18 Triage completed. tm6 10:18 Arm band placed on right wrist. tm6 10:48 Monico Beal MD is Referral Physician. sb4 10:48 Freddy Sears MD is Referral Physician. sb4 10:48 Mckay Mccoy MD is Referral Physician. sb4 10:48 Renato Miller MD is Referral Physician. sb4 10:54 Khalida Medina, VLAD is Primary Nurse. ss 11:08 Patient has correct armband on for positive identification. ss 11:09 No provider procedures requiring assistance completed. Patient did not have IV access ss during this emergency room visit. Administered Medications: 11:07 Drug: Hydrocodone-Acetaminophen PO (7.5 mg-325 mg) 1 tabs PO once Route: PO; ss 11:08 Follow up: Response: Medication administered at discharge. 11:07 Drug: Cephalexin PO 500 mg PO once Route: PO; 11:07 Follow up: Response: Medication Administered at Departure 11:07 Drug: metroNIDAZOLE PO 500 mg PO once Route: PO; 11:07 Follow up: Response: Medication Administered at Departure Medication: 11:08 VIS not applicable for this client. Outcome: 10:48 Discharge ordered by . [email or web address] 11:09 Discharged to home ambulatory, 11:09 Condition: good 11:09 Discharge instructions given to patient, Instructed on discharge instructions, follow up and referral plans. medication usage, Demonstrated understanding of instructions, follow-up care, medications, Prescriptions given X 3, 11:11 Patient left the ED. Signatures: Khalida Medina, RN RN Tami Vega PA-C PA-C sb4 Letty Colón Tawney RN RN tm6
[2024-05-31] MEDS ORDERED: HYDROCODONE/APAP 7.5/325 MG TAB ONE (10:54)
[2024-05-31] MEDS ORDERED: metroNIDAZOLE 500 MG TABLET ONE (10:55)
[2024-05-31] MEDS ORDERED: CEPHALEXIN 250 MG CAP ONE (11:01)
[2024-05-31 11:26] VITALS: BP 134/91; TEMP 98.4; O2SAT 99
== END 2024-05-31 11:11 | disposition home or self-care (01) ==
LOC: ER 09:44
DX: L05.01 Pilonidal cyst with abscess (principal)
CPT/HCPCS: 99283